=== PATIENT | female | born 1995 | race Native Hawaiian/Other Pacific Islander ===

== ENCOUNTER 2018-11-09 08:03 | Emergency (ER) | payer SELFPAY ==
[2018-11-09 08:10] VITALS: BP 140/80; PULSE 79; RESP 80; TEMP 37; O2SAT 100
--- NOTE | 2018-11-09 08:26 | DI.RAD_ITS ---
SYMPTOM/DIAGNOSIS: AXILLARY LYMPH NODE SWELLING, H/O UNKNOWN BONY ABNORMALITY PA AND LATERAL CHEST: The heart is normal in size. The lungs are clear. The mediastinal structures and pleura appear intact. CONCLUSION: Normal chest. LEFT HUMERUS: The patient reportedly has a history of a previous humeral lesion. There is a sclerotic endosteal lesion of the proximal humeral diaphysis measuring roughly 26 by 15 mm. in diameter. No other significant bony abnormality is seen. Previous images requested for comparison.
[2018-11-09 08:54] LABS: Abs Immature Grans 0.02 k/cumm (0.0-0.09); Absolute Basophil Count 0.05 k/cumm (0.0-0.2); Absolute Eosinophil Count 0.12 k/cumm (0.0-0.7); Absolute Lymphocyte Count 1.71 k/cumm (1.2-3.4); Absolute Monocyte Count 0.42 k/cumm (0.11-0.7); Absolute Neutrophil Count 3.85 k/cumm (1.2-6.7); Basophils % 0.8; Eosinophils % 1.9; HGB 15.3 g/dL (12.0-15.5); Immature Grans % 0.3; Lymphocytes % 27.7; Mean Corp. HGB Concentration 35.6 g/dL (32.0-36.0); Mean Corpuscular Hemoglobin 33.6 pg (27.0-33.0); Mean Corpuscular Volume 94.5 fL (80-95); Mean Platelet Volume 8.9 fL (8.0-11.0); Monocytes % 6.8; Neutrophils % 62.5; Platelet Count 395 x1000/uL (130-400); RBC 4.55 m/cumm (4.00-5.20); RBC Distribution Width 12.3 % (11.7-14.6); White Blood Cell Count 6.17 k/cumm (4.4-10.8)
--- NOTE | 2018-11-09 09:24 | W.ED.GENAD ---
Discharge Plan Disposition Patient Disposition: HOME Condition: Stable Discharge Details Chief Complaint: Cellulitis Clinical Impression: Lesion of left humerus Primary Care Provider: Ankur Dexter ED Provider: Odilon Hough Home Meds and New Rx's Prescriptions: No Action No Known Home Meds RF: 0 Discharge Instructions Instructions: Arm Pain (ED) Additional Instructions: Feel free to return to the emergency department for any new or significant worsening of symptoms or further concerns you may have. Otherwise you should follow-up with your primary care provider for reassessment and any further testing. Referrals: Ankur Dexter [Primary Care Provider] - 1 week (Follow-up with your primary care provider in the next 1 to 2 weeks for reassessment) Discharge Data Discharge Date/Time-TO BE ENTERED AT DEPARTURE: 11/09/18 09:54 Medical Decision Making Patient presenting to the emergency department for chief complaint of left axilla pain. Patient states this started yesterday evening and has been sharp. Patient states history of abnormal bone lesion about 10 years ago but she is unsure what arm this is occurred at. Patient denies any fever chills, cough, difficulty breathing. Patient also denies any injury or trauma to the left arm. Patient does have very tender left axilla with a small tender lymph node that is approximately 2 to 3 mm in size and is movable, not fixed. There is no erythema to this area no palpable area of fluctuance or induration. Exam is otherwise unremarkable with negative breast exam and no other abnormalities noted to left upper extreme. Given the patient states history of bone lesion without full follow-up and has lymph node tenderness I do feel that chest x-ray and humerus imaging is warranted along with CBC with differential. Review of CBC is nondiagnostic, chest x-ray is reviewed with radiologist interpreted as negative, imaging of left humerus shows a sclerotic lesion to the midshaft humerus otherwise is unremarkable. Speaking with radiologist he states that more than likely this is benign but may need further work-up and definitive biopsy if needed. All these results were reviewed with patient and she was informed that she should follow-up with her primary care provider given no emergent findings at this time. I do feel that this lymph node tenderness should be continued to be observed in biopsy versus repeat x-ray imaging may be warranted to continue to monitor this area. Speaking further with patient she does state that this was initially seen 10 years ago but does not know the size that it was at that time. Patient placed upon follow-up list for appointment with primary care provider next 1 to 2 weeks. Patient does shave her arms and use deodorant so she was informed to not do this over the next couple days to rule out any superficial sources that may be causing this discomfort. After discussion of diagnosis and plan of care patient has no further needs, questions, or concerns and states clear understanding to return to the emergency department for any worsening symptoms. HPI General Mode of arrival: ambulatory. Date/Time Provider Initiated Documentation: 11/09/18 08:05. Limitations to Documentation: no limitations. Information obtained by: patient and RN notes reviewed. History of Present Illness 23 year old F presents to the emergency department with the chief complaint of left axilla pain, described as moderate, with intensity rated at 6. Quality is described as sharp, and is localized to the left and upper extremity. Related Data Home Medications Medication Instructions Recorded Confirmed Unknown [No Known Home Meds] 11/09/18 11/09/18 Allergies Allergy/AdvReac Type Severity Reaction Status Date / Time amoxicillin Allergy Severe Anaphylaxsi Unverified 11/09/18 08:13 s Penicillins Allergy Severe Anaphylaxsi Unverified 11/09/18 08:13 s morphine Allergy Hives Unverified 11/09/18 08:13 General Stated Complaint: Cellulitis YOUSIF: 4 Review of Systems Constitutional Denies body ache(s), Denies chills and Denies fever(s) Cardiovascular Denies chest pain and Denies dyspnea Respiratory Denies dyspnea Gastrointestinal Denies abdominal pain, Denies nausea and Denies vomiting Integumentary/Breasts Denies rash Neurologic Denies sensory deficit Hematologic/Lymphatic Reports as per HPI (Painful lymph nodes) [facility] Social History Smoking/Tobacco Use Status: Current every day Tobacco Type: cigarettes Alcohol Intake: current Alcohol Intake frequency: a few times a month Drug use: Occasionally Substance use type: marijuana Do you feel safe at home: Yes Do you feel safe in your relationship?: Yes Exam Const General: cooperative, no acute distress and not ill appearing Orientation: alert, awake and oriented x3 Neck Neck: normal visual inspection, full ROM, no lymphadenopathy, trachea midline and supple Chest Breast inspection: normal inspection of the breasts and normal inspection of the axillae Breast palpation: normal palpation of the breasts and abnormal palpation of the axilla (Pain to the left axilla with one small palpable lymph node that is movable) Resp Effort & Inspection: normal respiratory effort, able to speak in complete sentences and no respiratory distress Auscultation: clear to auscultation bilaterally Cardio Rate: regular rate Rhythm: regular rhythm Heart Sounds: S1 normal, S2 normal, no gallops, no murmurs and no rubs Skin General skin exam: no rashes or lesions noted Hair: normal Neuro General: alert, awake, oriented x3 and moves all extremities Extrem Left upper extremity: shoulder/upper arm Course Vital Signs Temperature 37 C 11/09/18 08:10 Pulse 79 11/09/18 08:10 Respiratory Rate 80 H 11/09/18 08:10 Blood Pressure 140/80 11/09/18 08:10 Pulse Oximetry 100 11/09/18 08:10 Temperature 37 C 11/09/18 08:10 Temperature Source Temporal Artery Scan 11/09/18 08:10 Pulse 79 11/09/18 08:10 Respiratory Rate 80 H 11/09/18 08:10 Respiratory Effort Non-Labored 11/09/18 08:12 Blood Pressure 140/80 11/09/18 08:10 Blood Pressure Position Sitting 11/09/18 08:10 Pulse Oximetry 100 11/09/18 08:10 Oxygen Delivery Method Room Air 11/09/18 08:10 Oxygen Flow Rate 0 11/09/18 08:10 Pain Level 6 11/09/18 08:10 Lab/Test Results Lab/Test Results: Laboratory Tests Range/Units 11/09/18 08:47 WBC (4.4-10.8) k/cumm 6.17 RBC (4.00-5.20) m/cumm 4.55 Hgb (12.0-15.5) g/dL 15.3 Hct (36.0-46.0) % 43.0 MCV (80-95) fL 94.5 MCH (27.0-33.0) pg 33.6 H MCHC (32.0-36.0) g/dL 35.6 RDW (11.7-14.6) % 12.3 Plt Count (130-400) x1000/uL 395 MPV (8.0-11.0) fL 8.9 Immature Gran % 0.3 Neutrophils % 62.5 Lymphocytes % 27.7 Monocytes % 6.8 Eosinophils % 1.9 Basophils % 0.8 Absolute Neutrophils (1.2-6.7) k/cumm 3.85 Absolute Lymphocytes (1.2-3.4) k/cumm 1.71 Absolute Monocytes (0.11-0.7) k/cumm 0.42 Absolute Eosinophils (0.0-0.7) k/cumm 0.12 Absolute Basophils (0.0-0.2) k/cumm 0.05 POC- Test(urine) Negative
--- NOTE | 2018-11-10 08:15 | PDOC.ERCMPRO ---
Care Management Progress Note 11/10-Adan TANK WASHER requested assistance with a PCP (Guerita) in 1-2 weeks for lesion, humerus. Referral faxed to [facility] this am.
--- NOTE | 2018-11-10 08:16 | CMPROGNOTE_ITS ---
Care Management Progress Note 11/10-Adan TEST AND TURN UP TECHNICIAN requested assistance with a PCP (Guerita) in 1-2 weeks for lesion, humerus. Referral faxed to [facility] this am.
== END 2018-11-09 09:54 | disposition home or self-care (01) ==
PROVIDERS: Emergency Provider Nurse Practitioner Family; PCP Specialist/Technologist Athletic Trainer
DX: M89.9 Disorder of bone, unspecified (principal)
CPT/HCPCS: 36415; 81025; 99284; 71046; 73060; 85025

== ENCOUNTER 2019-08-09 13:36 | Outpatient (REF) | payer SELFPAY ==
[2019-08-09 21:09] LABS: Bacteria Many HPF (Negative); Casts Negative LPF (Negative); Crystals Negative HPF (Negative); Epithelial Cells Negative HPF (Negative); Mucus Negative (Negative); Other Cells Negative (Negative); RBC Negative HPF (0-2); WBC 0-2 HPF (0-5)
[2019-08-09 21:10] LABS: C & S Indicated? Yes
== END 2019-08-09 13:56 ==
LOC: NCHCN 13:36
PROVIDERS: Visit Provider Family Medicine
DX: R10.2 Pelvic and perineal pain (principal)
CPT/HCPCS: 87077; 81015; 87086; 87186; 87480; 87510; 87660

== ENCOUNTER 2019-08-24 14:51 | Outpatient (REF) | payer SELFPAY ==
[2019-08-24 19:18] LABS: Bacteria Negative HPF (Negative); C & S Indicated? No; Crystals Negative HPF (Negative); Epithelial Cells Few HPF (Negative); Mucus Negative (Negative); RBC Negative HPF (0-2); WBC Negative HPF (0-5)
== END 2019-08-24 15:11 ==
LOC: NCHCN 14:51
PROVIDERS: PCP Specialist/Technologist Athletic Trainer; Visit Provider Specialist/Technologist Athletic Trainer
DX: R10.9 Unspecified abdominal pain (principal)
CPT/HCPCS: 81015

== ENCOUNTER 2019-08-29 01:21 | Outpatient (CLI) | payer SELFPAY ==
--- NOTE | 2019-08-29 | DI.US_ITS ---
EXAM: US ABD PELV TRANSVAG NON-OB CLINICAL HISTORY: LT FLANK, ABD AND PELVIC PAIN TECHNIQUE: Ultrasound performed using standard protocol. COMPARISON: No exams were available for comparison FINDINGS: Pelvic ultrasound: Transabdominal and transvaginal exams were performed. The uterus measures 6.2 x 3 .0 x 4.2 cm. The endometrial stripe measures 5 millimeters in thickness. There is a small amount of free fluid in the cul-de-sac. The ovaries have a normal appearance. Abdomen ultrasound: The liver is normal in size. There is a question of slightly increased liver ech ogenicity which could indicate mild fatty infiltration. No focal liver lesions or biliary dilatation is seen. The gallbladder is unremarkable, without evidence of stones or wall thickening. The splee n, kidneys and aorta are unremarkable. The pancreas was not well seen. IMPRESSION: Abdomen and pelvic ultrasound within normal limits. DATA REPOSITORY:
== END 2019-08-29 01:41 ==
PROVIDERS: PCP Nurse Practitioner Family; Visit Provider Nurse Practitioner Family
DX: R10.2 Pelvic and perineal pain (principal); R10.32 Left lower quadrant pain; K76.89 Other specified diseases of liver
CPT/HCPCS: 76700; 76830; 76856

== ENCOUNTER 2020-02-19 06:27 | Emergency (ER) | payer MEDICAID, SELFPAY ==
[2020-02-19] VITALS (7 sets, daily range): BP systolic 103–137; BP diastolic 56–86; PULSE 50–74; RESP 11–20; TEMP 36.7–36.9; O2SAT 97–100
--- NOTE | 2020-02-19 06:35 | ED.GENADUL_ITS ---
Discharge Plan Disposition Patient Disposition: HOME Condition: Stable Discharge Details Chief Complaint: Nausea/Vomit/Diar Clinical Impression: Gastroenteritis, Vomiting, Abdominal pain Primary Care Provider: Jo Baum ED Provider: Monty Mendoza Home Meds and New Rx's Prescriptions: New prochlorperazine maleate [Compazine] 10 mg tablet 10 mg PO TID PRN (Reason: nausea and vomiting) Qty: 30 RF: 0 dicyclomine 20 mg tablet 20 mg PO TID Qty: 30 RF: 0 Discharge Instructions Instructions: Abdominal Pain (ED) Additional Instructions: drink fluids to stay hydrated follow up as scheduled with gastroenterology tomorrow if you feel more ill, have persistent vomit or severe worsening pain despite tylenol and ibuprofen return to the emergency department Stand Alone Forms: Work Release Medical Decision Making <Barrett Alan DO - Last Filed: 02/19/20 07:27> 24-year-old came female with a questionable history of irritable bowel syndrome in the distant past, presents today for evaluation of vomiting. Patient states that over the last few months she has had intermittent vomiting on and off, most recent episode has lasted for the last 4 days with 3-4 episodes of vomiting per day. She states that she has been unable to keep anything d own. She denies any risk of . She denies any previous surgeries on her abdomen. She has had some associated diarrhea, she denies any bloody diarrhea, recent antibiotics or foreign travel or sick contacts. She denies any hematemesis or coffee-ground emesis. She denies any other sick contacts. She does have gastroenterology appointment tomorrow in [place]. She denies any other complaints at this time. No other modifying factors. Physical exam demonstrates mild tenderness throughout . No guarding or rebound. Bowel sounds present. No pain at McBurney's point, some generalized nausea and discomfort with some mild periumbilical tenderness. Patient does smoke marijuana occasionally. Signs and symptoms are concerning for potential viral gastroenteritis versus mild irritable bowel syndrome. =We will get basic laboratory work-up, check for pancreatitis, rehydrate, treat the patient's nausea and spasm and reassess. 7:10 AM Repeat assessment after nausea and Bentyl medications demonstrates actual continued slight worsening of pain, then reassessment patient continues to have pain in the periumbilical region. Discussed risk and benefits of imaging, this time will progress with CT scan of the abdomen pelvis to rule out acute process. We will continue with rehydration medical management as well. Laboratory work-up is otherwise benign. Case will be signed out to my colleague Dr. Mendoza for final exam reassessment after imaging has returned. <Monty Mendoza MD - Last Filed: 02/19/20 08:51> labs show no significant findings and she is hd stable. She has a soft abdomen with no peritoneal findings on exam mild luq tenderness, no distention. I feel she is stable for d/c and has f/u with gi tomorrow, will prescribe compazine and bentyl and return precautions given Imaging Data Radiologic Study: Attestation: I personally reviewed and interpreted this imaging study as follows: Imaging: CT Scan Radiologist's impression: IMPRESSION: 1. Small quantity of free fluid in the cul-de-sac. 2. Wall thickening in the nondistended stomach. 3. Additional findings as described above. Lab Data Lab results reviewed: Yes I reviewed the patient's lab results. ECG Data Attestation: I personally reviewed and interpreted this ECG (s) as follows: Prior ECG tracings: not available for review Interpretation: sinus bradycardia, rate of 47, pr 118, no acute st t wave ischemic findings HPI <Barrett Alan DO - Last Filed: 02/19/20 07:27> General Date/Time Provider Initiated Documentation: 02/19/20 06:27 . HPI Narrative: 24-year-old came female with a questionable history of irritable bowel syndrome in the distant past, presents today for evaluation of vomiting. Patient states that over the last few months she has had intermittent vomiting on and off, most recent episode has lasted for the last 4 days with 3-4 episodes of vomiting per day. She states that she has been unable to keep anything down. She denies any risk of . She denies any previous surgeries on her abdomen. She has had some associated diarrhea, she denies any bloody diarrhea, recent antibiotics or foreign travel or sick contacts. She denies any hematemesis or coffee-ground emesis. She denies any other sick contacts. She does have gastroenterology appointment tomorrow in [place]. She denies any other complaints at this time. No other modifying factors. Related Data Home Medications Medication Instructions Recorded Confirmed dicyclomine 20 mg PO TID #30 tab 02/19/20 prochlorperazine maleate 10 mg PO TID PRN #30 tab 02/19/20 [Compazine] Previous Rx's Medication Instructions Recorded dicyclomine 20 mg PO TID #30 tab 02/19/20 prochlorperazine maleate 10 mg PO TID PRN #30 tab 02/19/20 [Compazine] Allergies Allergy/AdvReac Type Severity Reaction Status Date / Time amoxicillin Allergy Severe Anaphylaxsi Unverified 02/19/20 06:35 s Penicillins Allergy Severe Anaphylaxsi Unverified 02/19/20 06:35 s morphine Allergy Hives Unverified 02/19/20 06:35 General Stated Complaint: Nausea/Vomit/Diar YOUSIF: 3 Review of Systems <Barrett Alan DO - Last Filed: 02/19/20 07:27> All systems reviewed & are unremarkable except as noted in HPI and below PFSH <Barrett Alan DO - Last Filed: 02/19/20 07:27> Social History Smoking/Tobacco Use Status: Current every day Tobacco Type: cigarettes Alcohol Intake: current Alcohol Intake frequency: a few times a month Drug use: Occasionally Substance use type: marijuana Do you feel safe at home: Yes Do you feel safe in your relationship?: Yes Exam <Barrett Alan DO - Last Filed: 02/19/20 07:27> Narrative Exam Narrative: 1.Const: Well-nourished, Well-developed, appearing stated age 2.Eyes: PERRL, no conjunctival injection, and symmetrical lids. 3.ENT: Atraumatic external nose and ears. Moist MM. Neck: Symmetric, trachea midline, No thyromegaly. 4.CVS: +S1/S2, No murmurs or gallops. Peripheral pulses 2+ and equal in all extremities. Brisk capillary refill in all extremities. 5.RESP: Unlabored respiratory effort. Clear to auscultation bilaterally. No wheezes rales or rhonchi 6.GI: Soft, nondistended, no hepatosplenomegaly, no guarding or rebound. No tenderness at McBurney's point, negative Kat sign. Bowel sounds notably present, mild tenderness throughout. 7.MSK: Normocephalic/Atraumatic, Extremities w/o deformity or ttp No cyanosis or clubbing, Normal movement of all extremities 8.Skin: Warm, Dry. No rashes or lesions. 9.Neuro: staff psychologist II-XII grossly intact. Sensation grossly intact, no focal neurologic deficits. 10.Psych: (AAO) x3. Appropriate mood and affect Course <Barrett Alan DO - Last Filed: 02/19/20 07:27> Vital Signs Vital signs: Vital Signs Temperature 36.7 C 02/19/20 06:31 Pulse 74 02/19/20 06:31 Respiratory Rate 20 02/19/20 06:31 Blood Pressure 137/86 02/19/20 06:31 Pulse Oximetry 99 02/19/20 06:31 Temperature 36.7 C 02/19/20 06:31 Temperature Source Temporal Artery Scan 02/19/20 06:31 Pulse 74 02/19/20 06:31 Respiratory Rate 20 02/19/20 06:31 Blood Pressure 137/86 02/19/20 06:31 Blood Pressure Position Sitting 02/19/20 06:31 Pulse Oximetry 99 02/19/20 06:31 Oxygen Delivery Method Room Air 02/19/20 06:31 Oxygen Flow Rate 0 02/19/20 06:31 Pain Level 8 02/19/20 06:31 Sign Out <Barrett Alan DO - Last Filed: 02/19/20 07:27> Sign Out Data: Sign Out Comment: Pending urinalysis, and CT imaging results. Suspect gastroenteritis versus mild colitis. Last updated by Barrett Alan DO at 02/19/20 07:27
[2020-02-19] MEDS: Normal Saline 1,000 ML 1000 ML IV (06:44)
[2020-02-19] MEDS: Ondansetron 4 MG/2 ML VIAL IVP (06:45)
[2020-02-19 06:49] LABS: Abs Immature Grans 0.02 10^3/uL (0.0-0.06); Absolute Basophil Count 0.04 10^3/uL (0.0-0.2); Absolute Eosinophil Count 0.08 10^3/uL (0.0-0.7); Absolute Lymphocyte Count 2.09 10^3/uL (1.2-3.4); Absolute Monocyte Count 0.53 10^3/uL (0.1-0.8); Absolute Neutrophil Count 4.97 10^3/uL (1.2-6.7); Basophils % 0.5; HCT 43.5 % (36.0-46.0); HGB 15.4 g/dL (11.2-15.7); Immature Grans % 0.3; MCHC 35.4 % (32.0-36.0); MCV 98.9 fL (80-95); MPV 9.3 fL (8.0-11.0); Monocytes % 6.9; Neutrophils % 64.3; Nucleated RBC 0 %; Platelet Count 437 10^3/uL (130-400); RDW 11.9 % (11.7-14.6); RDW-SD 43.4 fL; WBC 7.73 10^3/uL (4.4-10.8)
[2020-02-19 07:11] LABS: ALT 20 U/L (14-59); AST 23 U/L (15-37); Albumin 3.9 g/dL (3.4-5.0); Alkaline Phosphatase 68 U/L (46-116); Anion Gap 10.6 mmol/L (3-11); BUN 9 mg/dL (7-18); Bilirubin, Total 0.8 mg/dL (0.2-1.0); CO2 25.4 mmol/L (21.0-32.0); CREATININE 0.86 mg/dL (0.55-1.02); Calcium 9.2 mg/dL (8.5-10.1); Chloride 104 mmol/L (98-107); Glucose 114 mg/dL (74-106); Lipase 329 U/L (73-393); Potassium 3.5 mmol/L (3.5-5.1); Sodium 140 mmol/L (136-145); Total Protein 7.6 g/dL (6.4-8.2)
--- NOTE | 2020-02-19 07:12 | DI.CT_ITS ---
EXAM: CT ABDOMEN PELVIS W CLINICAL HISTORY: vomiting, hui-umbilical abd pain r/o appe/GB path. TECHNIQUE: Imaging Protocol: Axial computed tomography images with coronal and sagittal reformatted images were created and reviewed CONTRAST MATERIAL: Intravenous: Omnipaque 350 Contrast volume:96 Oral: no COMPARISON: CT CHEST FOR PE, ABD PELVIS W from 12/12/2017 FINDINGS: ABDOMEN: Lung Bases: Normal where visualized. Liver: Normal density. No measurable mass. Gallbladder and biliary tract: No radiodense calculus or dilation. Pancreas: Normal density, no abnormal calcifications or inflammatory process. Spleen: Normal. Kidneys: Normal size, contour and axis. No radiodense stones or obstructive uropathy. No masses seen. Adrenal glands: No masses seen. Abdominal Aorta: Abdominal portion non-dilated. PELVIS: Bladder: Symmetric distention, no gross wall thickening. Bowel: The bowel is suboptimally evaluated due to lack of oral contrast and paucity of intra-abdomina l fat. There is no evidence of appendicitis. There is a normal quantity of stool. No obstruction o r bowel wall thickening. Peritoneal cavity: No ascites, collection or mesenteric inflammatory response. Bones: Within normal limits. Reproductive organs: Within normal limits. Lymph nodes: Unremarkable. Impression: Unremarkable CT scan of the abdomen and pelvis. RADIATION DOSE DELIVERED: 705.06mGy.cm Total DLP DATA REPOSITORY: All CT scans at this facility are submitted to the National Radiology Data Registry (NRDR) Dose Index Registry (DIR) with the [employer] (ACR). RADIATION OPTIMIZATION: All CT scans at this facility use at least one of these dose optimization te chniques: automated exposure control; mA and/or kV adjustment per patient size (includes targeted exa ms where dose is matched to clinical indication); or iterative reconstruction.
[2020-02-19 07:29] LABS: Bilirubin Negative (Negative); Blood Moderate (Negative); Clarity Clear (Clear); Glucose Negative (Negative); Ketones Negative (Negative); Leukocyte Esterase Negative (Negative); Nitrite Negative (Negative); Urobilinogen 0.2 EU/dL (Up TO 0.2)
[2020-02-19] MEDS: HYDROmorphone 2 MG/ML VIAL 1 MG IVP (07:31)
[2020-02-19 07:42] LABS: Bacteria Negative HPF (Negative); C & S Indicated? No; Casts Negative LPF (Negative); Crystals Negative HPF (Negative); Epithelial Cells Few HPF (Negative); Mucus Trace (Negative); WBC 0-2 HPF (0-5)
[2020-02-19] MEDS: Omnipaque 350 MG/ML 100 ML BTL IJ (08:06)
[2020-02-19] MEDS: Normal Saline Flush 10 ML SYR IVP (08:09)
[2020-02-19] MEDS: Normal Saline - Diluent 50 ML VIAL IV (08:09)
--- NOTE | 2020-02-19 08:15 | RT.EKG_ITS ---
APPROVED REPORT Exam: Resting ECG Patient Location: E HR:47 bpm ECG Measurements Heart Rate 47 AXIS AL 118 P 89 QRSd 88 QRS 47 QT 517 T 37 QTc 458 Conclusion Sinus bradycardia...rate< 60
[2020-02-19] MEDS: Dicyclomine 20 MG TAB PO (08:20)
--- NOTE | 2020-02-19 08:38 | DI.VRAD_ITS ---
PROCEDURE INFORMATION: Exam: CT Abdomen And Pelvis With Contrast Exam date and time: 02/19/2020 8:08 AM Age: 24 years old Clinical indication: Pain; Vomiting; Other: Jacqueline-umbilical; Patient HX: R/O gb pathology/appendicitis TECHNIQUE: Imaging protocol: Computed tomography of the abdomen and pelvis with intravenous contrast. Radiation optimization: All CT scans at this facility use at least one of these dose optimization techniques: automated exposure control; mA and/or kV adjustment per patient size (includes targeted exams where dose is matched to clinical indication); or iterative reconstruction. Contrast material: OMNIPAQUE 350; Contrast volume: 96 ml; Contrast route: INTRAVENOUS (IV); COMPARISON: CT CHEST FOR PE, ABD PELVIS W 12/12/2017 9:02 PM FINDINGS: Pleural space: No acute airspace or pleural disease. Liver: Focal fatty infiltration of the liver. Gallbladder and bile ducts: No cholelithiasis or biliary ductal dilatation. Pancreas: No pancreatic mass or ductal dilatation. Spleen: Inhomogeneous attenuation in the normal size spleen. Adrenals: Unremarkable adrenals. Kidneys and ureters: Normal renal morphology. No hydronephrosis. Stomach and bowel: Wall thickening in the nondistended stomach. Mild small bowel dilatation without a focal transition zone. Diverticula, without pericolonic inflammation. Appendix: No acute appendicitis. Intraperitoneal space: Small quantity of free fluid in the cul-de-sac. Vasculature: Normal caliber of the abdominal aorta. Lymph nodes: Subcentimeter lymph nodes. Bladder: Mild bladder wall thickening. Reproductive: Follicular change in the ovaries. Bones/joints: Sacroiliac joint sclerosis. Schmorl's nodes. IMPRESSION: 1. Small quantity of free fluid in the cul-de-sac. 2. Wall thickening in the nondistended stomach. 3. Additional findings as described above. Dictated and Authenticated by: Matthew Coppola MD. Ordering:ES Hyde MD
== END 2020-02-19 09:24 | disposition home or self-care (01) ==
PROVIDERS: Student in an Organized Health Care Education/Training Program; Emergency Provider Emergency Medicine; PCP Nurse Practitioner Family
DX: K52.89 Other specified noninfective gastroenteritis and colitis (principal); R11.10 Vomiting, unspecified; R10.33 Periumbilical pain
CPT/HCPCS: 36415; 80053; 81025; 83690; 93005; 96361; 96374; 96375; 99285; 74177; 81003; 81015; 85025; 93010; 99284; J2405; J3490

== ENCOUNTER 2020-04-03 18:02 | Outpatient (REF) | payer MEDICAID, SELFPAY ==
--- NOTE | 2020-04-03 16:30 | PAPFT_PTH ---
PATIENT: Jasmyne Montoya [id number] AGE/SX: 25/F ROOM: RE04/03/[address]: Jo Baum : 1995 BED: DIS: 04/03/2020 SPEC #: [id number] RECD: 04/04/20 12:50 STATUS: MAYKEL REAkhil #: [id number] RONNY: 04/03/20 16:[address]: Jo Baum DEPT: [facility] Cytology RECD BY: Josefina Doran Tissues: 1 - CX/ENDOCX FOR PAP SMEARS Procedures: PAP THIN PREP/[facility] Screening Comments: [id number]
== END 2020-04-03 18:22 ==
LOC: NCHCN 18:02
PROVIDERS: PCP Nurse Practitioner Family; Visit Provider Nurse Practitioner Family
DX: Z12.4 Encounter for screening for malignant neoplasm of cervix (principal)
CPT/HCPCS: 88142

== ENCOUNTER 2020-04-18 07:42 | Emergency (ER) | payer MEDICAID, SELFPAY ==
[2020-04-18 07:51] VITALS: BP 126/93; PULSE 74; RESP 14; TEMP 36.6; O2SAT 100
--- NOTE | 2020-04-18 08:15 | DI.CT_ITS ---
EXAM: CT HEAD WO CLINICAL HISTORY: GUADARRAMA x 2 days, no Hx. TECHNIQUE: Imaging Protocol: Axial computed tomography images with coronal and sagittal reformatted images were created and reviewed COMPARISON: No exams were available for comparison FINDINGS: Ventricles and Extra axial spaces: Normal in size and morphology for the patient's age. Hemorrhage: None. Cerebral parenchyma: Normal. Midline shift: None. Brainstem/Cerebellum: Normal. Calvarium: Normal. Visualized Paranasal sinuses/Mastoids: Clear. Soft Tissues: Unremarkable. IMPRESSION: No acute intracranial process. Results of this exam have been verbally communicated with provider. RADIATION DOSE DELIVERED: 688.22mGy.cm Total DLP DATA REPOSITORY: All CT scans at this facility are submitted to the National Radiology Data Registry (NRDR) Dose Index Registry (DIR) with the [employer] (ACR). RADIATION OPTIMIZATION: All CT scans at this facility use at least one of these dose optimization te chniques: automated exposure control; mA and/or kV adjustment per patient size (includes targeted exa ms where dose is matched to clinical indication); or iterative reconstruction.
[2020-04-18] MEDS: Metoclopramide 10 MG/2 ML VIAL IVP (08:39)
[2020-04-18] MEDS: diphenhydrAMINE 50 MG/ML VIAL IVP (08:40)
[2020-04-18] MEDS: Ketorolac 30 MG/ML VIAL IVP (08:40)
[2020-04-18 08:41] LABS: Bilirubin Negative (Negative); Blood Negative (Negative); Clarity Clear (Clear); Glucose Negative (Negative); Ketones Negative (Negative); Leukocyte Esterase Trace (Negative); Nitrite Negative (Negative); pH 8.5 (5-8)
[2020-04-18] MEDS: Normal Saline 1,000 ML 1000 ML IV (08:41)
[2020-04-18] MEDS: Normal Saline 50 ML (08:41)
[2020-04-18 08:51] LABS: Bacteria Moderate HPF (Negative); C & S Indicated? Yes; Casts Negative LPF (Negative); Crystals Negative HPF (Negative); Epithelial Cells Few HPF (Negative); Mucus Heavy (Negative); RBC 0-2 HPF (0-2); WBC 20-50 HPF (0-5)
[2020-04-18 08:56] LABS: Abs Immature Grans 0.04 10^3/uL (0.0-0.06); Absolute Basophil Count 0.05 10^3/uL (0.0-0.2); Absolute Eosinophil Count 0.03 10^3/uL (0.0-0.7); Absolute Lymphocyte Count 1.82 10^3/uL (1.2-3.4); Absolute Monocyte Count 0.61 10^3/uL (0.1-0.8); Absolute Neutrophil Count 6.39 10^3/uL (1.2-6.7); Basophils % 0.6; Eosinophils % 0.3; HCT 44.2 % (36.0-46.0); HGB 15.6 g/dL (11.2-15.7); Immature Grans % 0.4; Lymphocytes % 20.4; MCH 34.9 pg (27.0-33.0); MCHC 35.3 % (32.0-36.0); MCV 98.9 fL (80-95); MPV 9.8 fL (8.0-11.0); Monocytes % 6.8; Neutrophils % 71.5; Nucleated RBC 0 %; Platelet Count 380 10^3/uL (130-400); RBC 4.47 10^6/uL (3.93-5.22); RDW 12.2 % (11.7-14.6); RDW-SD 44.6 fL; WBC 8.94 10^3/uL (4.4-10.8)
[2020-04-18 09:15] LABS: ALT 15 U/L (14-59); AST 23 U/L (15-37); Albumin 3.9 g/dL (3.4-5.0); Alkaline Phosphatase 78 U/L (46-116); Anion Gap 8.2 mmol/L (3-11); BUN 9 mg/dL (7-18); Bilirubin, Total 1.2 mg/dL (0.2-1.0); CO2 26.8 mmol/L (21.0-32.0); CREATININE 0.74 mg/dL (0.55-1.02); Calcium 8.8 mg/dL (8.5-10.1); Chloride 102 mmol/L (98-107); Glucose 99 mg/dL (74-106); Potassium 3.6 mmol/L (3.5-5.1); Sodium 137 mmol/L (136-145); Total Protein 7.8 g/dL (6.4-8.2)
[2020-04-18 09:57] VITALS: BP 102/74; PULSE 51; RESP 16; O2SAT 99
[2020-04-18] MEDS: ACETAMINOPHEN 1,000 MG/100 ML BTL 400 MG IVPB (10:13)
--- NOTE | 2020-04-18 10:29 | W.ED.GENAD ---
Discharge Plan Disposition Patient Disposition: HOME Condition: Stable Discharge Details Clinical Impression: Cephalalgia Primary Care Provider: Jo Baum ED Provider: Christopher Busch Home Meds and New Rx's Prescriptions: Continued prochlorperazine maleate [Compazine] 10 mg tablet 10 mg PO TID PRN (Reason: nausea and vomiting) Qty: 30 RF: 0 dicyclomine 20 mg tablet 20 mg PO TID Qty: 30 RF: 0 omeprazole 40 mg capsule,delayed release(DR/EC) RF: 0 Discharge Instructions Instructions: General Headache (ED) Additional Instructions: At this time your blood work and CT imaging are unremarkable for obvious emergent process. Urine culture is pending. We discussed the risks and benefits of lumbar puncture at this time, using shared decision making the option to defer the lumbar puncture today was elected. As we discussed, please watch for new or worsening symptoms and return to the ER for any concerns. Plenty of fluids to avoid dehydration. [id number]-[id number] Tylenol and/or Motrin as directed for discomfort. Continue taking your antiemetic as directed. I do recommend reaching out your primary care provider later today for prompt outpatient reevaluation. As we discussed if you continue to have headaches referral to neurology may also be indicated. Discharge Data Discharge Date/Time-TO BE ENTERED AT DEPARTURE: 04/18/20 12:10 Medical Decision Making 25-year-old female with no significant past medical history reports with a progressive and gradual global headache for the past 2 days. Denies recent illness, trauma, visual changes, neck pain, fever. She appears well, nontoxic, no acute distress, however the light is off in the room given her photosensitivity. Given she has never had a headache or migraine before, we discussed her options. She is agreeable to a head CT and routine laboratory values. We will give IV fluid, Reglan, Benadryl, Toradol. We did discuss diagnoses such as headache, migraine, aneurysm, meningitis, subarachnoid hemorrhage, etc. She certainly did not have a thunderclap headache. She denies any family history of migraines, aneurysm, CVA, etc. We discussed the setting of lumbar puncture and her current symptoms. Upon reevaluation patient reports that her pain went from an 8 down to a 6 and now has no nausea and only mild photosensitivity. White blood cell count of 8.94. Hemoglobin 15.6 hematocrit 44.2 platelet count 380. Electrolytes unremarkable. Creatinine 0.74 with a GFR greater than 60. Total bili 1.2 LFTs otherwise unremarkable. Urinalysis does show 20-50 white blood cells, few epithelials. Negative nitrate. Patient denies any urinary symptoms whatsoever, will not initiate antibiotic therapy and will await culture. Imaging of her head was unremarkable. Upon reevaluation she continues to appear well, nontoxic, reports her pain is now a 5 out of 10. We discussed her benign work-up thus far. She continues to have no nuchal rigidity. We once again discussed options. She would like to not proceed with a lumbar puncture understanding the limitations of CT imaging with a headache that has been present for the last 48 hours. Will give IV magnesium and Tylenol. Upon reevaluation she reports significant improvement. Pain is now a 3 out of 10. Denies any photosensitivity or nausea. Patient's is now in the room. We once again discussed lumbar puncture, patient declines, understands the risks and benefits. She is feeling better and would like to be discharged. She has antiemetics at home and will use [id number]-[id number] Tylenol and/or Motrin, plenty of fluids to avoid dehydration. We discussed the importance of watching for new or evolving symptoms and returning immediately to the ER. Otherwise she will reach out to her primary care provider later today or tomorrow for prompt outpatient reevaluation. She does understand that outpatient referral to neurology may be indicated if symptoms persist. Upon discharge she appears well, nontoxic, neurologically intact. Medical Records Medical records reviewed: Yes I reviewed the patient's medical records. Imaging Data Radiologic Study: Attestation: I personally reviewed and interpreted this imaging study as follows: Imaging: CT Scan Radiologist's impression: CT imaging of brain unremarkable per radiology Lab Data Lab results reviewed: Yes I reviewed the patient's lab results. Lab results narrative: 04/18/20 08:30 Urine - Reflex from Ua Urine Culture - Preliminary Laboratory Tests Range/Units 04/18/20 04/18/20 04/18/20 08:10 08:10 08:30 WBC (4.4-10.8) 10^3/uL 8.94 RBC (3.93-5.22) 10^6/uL 4.47 Hgb (11.2-15.7) g/dL 15.6 Hct (36.0-46.0) % 44.2 MCV (80-95) fL 98.9 H MCH (27.0-33.0) pg 34.9 H MCHC (32.0-36.0) % 35.3 RDW (11.7-14.6) % 12.2 Plt Count (130-400) 10^3/uL 380 MPV (8.0-11.0) fL 9.8 Immature Gran % 0.4 Neutrophils % 71.5 Lymphocytes % 20.4 Monocytes % 6.8 Eosinophils % 0.3 Basophils % 0.6 Nucleated RBC % % 0 Absolute Neutrophils (1.2-6.7) 10^3/uL 6.39 Absolute Lymphocytes (1.2-3.4) 10^3/uL 1.82 Absolute Monocytes (0.1-0.8) 10^3/uL 0.61 Absolute Eosinophils (0.0-0.7) 10^3/uL 0.03 Absolute Basophils (0.0-0.2) 10^3/uL 0.05 Sodium (136-145) mmol/L 137 Potassium (3.5-5.1) mmol/L 3.6 Chloride (98-107) mmol/L 102 Carbon Dioxide (21.0-32.0) mmol/L 26.8 Anion Gap (3-11) mmol/L 8.2 BUN (7-18) mg/dL 9 Creatinine (0.55-1.02) mg/dL 0.74 Estimated GFR/1.73 m2 (mL/min/1.73m2) >= 60.00 Glucose (74-106) mg/dL 99 Calcium (8.5-10.1) mg/dL 8.8 Total Bilirubin (0.2-1.0) mg/dL 1.2 H AST (15-37) U/L 23 ALT (14-59) U/L 15 Alkaline Phosphatase (46-116) U/L 78 Total Protein (6.4-8.2) g/dL 7.8 Albumin (3.4-5.0) g/dL 3.9 Urine Color (Yellow) Yellow Urine Clarity (Clear) Clear Urine pH (5-8) 8.5 H Ur Specific [place] (1.005-1.025) 1.020 Urine Protein (Negative) mg/dL 30 H Urine Ketones (Negative) mg/dL Negative Urine Blood (Negative) Negative Urine Nitrite (Negative) Negative Urine Bilirubin (Negative) Negative Urine Urobilinogen (Up TO 0.2) EU/dL 1.0 H Ur Leukocyte Esterase (Negative) Trace H Urine RBC (0-2) HPF 0-2 Urine WBC (0-5) HPF 20-50 H Ur Epithelial Cells (Negative) HPF Few Urine Crystals (Negative) HPF Negative Urine Bacteria (Negative) HPF Moderate Urine Casts (Negative) LPF Negative Urine Mucus (Negative) Heavy Ur Culture Indicated? Yes Urine Glucose (Negative) mg/dL Negative HPI General Mode of arrival: ambulatory. Date/Time Provider Initiated Documentation: 04/18/20 08:02. Limitations to Documentation: no limitations. Information obtained by: patient. HPI Narrative: This is a 25-year-old female who reports no significant past medical history although has been having stomach issues for quite some time. She presents to the ER today reporting a global headache that began 2 days ago. When she went to bed 3 days ago she was asymptomatic. She awoke with a mild headache, it has since become progressively worse, now an 8 out of 10. She reports nausea, vomiting, photosensitivity. She denies previous history of headaches or migraines. Denies recent illness or trauma. Denies striking her head, visual changes, neck pain, fever, chest pain, abdominal pain, numbness, tingling, weakness, incontinence. She has taken her prescribed antiemetic with mild relief but has not tried other nbgm-ffr-momdxjz medications. Related Data Home Medications Medication Instructions Recorded Confirmed dicyclomine 20 mg PO TID #30 tab 02/19/20 04/18/20 prochlorperazine maleate 10 mg PO TID PRN #30 tab 02/19/20 [Compazine] omeprazole 04/18/20 04/18/20 Previous Rx's Medication Instructions Recorded dicyclomine 20 mg PO TID #30 tab 02/19/20 prochlorperazine maleate 10 mg PO TID PRN #30 tab 02/19/20 [Compazine] Allergies Allergy/AdvReac Type Severity Reaction Status Date / Time amoxicillin Allergy Severe Anaphylaxsi Unverified 04/18/20 07:53 s Penicillins Allergy Severe Anaphylaxsi Unverified 04/18/20 07:53 s morphine Allergy Hives Unverified 04/18/20 07:53 General Stated Complaint: Headache YOUSIF: 3 Review of Systems Constitutional Constitutional: Denies fatigue, Denies fever(s), Reports headache(s) and Denies weakness Eyes Eyes: Denies change in vision ENT Ears, Nose, Mouth, and Throat: Reports headache(s) and Denies sinus pressure Cardiovascular Cardiovascular: Denies chest pain and Denies dyspnea Respiratory Respiratory: Denies cough and Denies dyspnea Gastrointestinal Gastrointestinal: Denies abdominal pain, Reports nausea and Reports vomiting Musculoskeletal Musculoskeletal: Denies back pain, Denies arthralgias, Denies numbness and Denies tingling Integumentary/Breasts Skin/Breast: Denies rash Neurologic Neurologic: Reports headache(s), Denies numbness, Denies tingling and Denies weakness Endocrine Endocrine: Denies fatigue PFSH Social History Smoking/Tobacco Use Status: Current every day Tobacco Type: cigarettes Alcohol Intake: current Alcohol Intake frequency: a few times a month Drug use: Occasionally Substance use type: marijuana Do you feel safe at home: Yes Do you feel safe in your relationship?: Yes Exam Const General: cooperative, healthy appearing, comfortable and no acute distress Orientation: alert, awake and oriented x3 HENMT Head: normal to inspection, normocephalic and atraumatic Ears: external ears normal, TM's normal bilaterally and EAC's normal Mouth: moist mucous membranes Eyes General: appearance normal, both eyes and all related structures Alignment and Position: alignment normal Periorbital: periorbital findings normal Eyelids: eyelids normal Conjunctivae: conjunctivae normal Sclera: sclerae normal Cornea: corneas normal Pupils: PERRL EOM: EOM intact bilaterally Direct ophthalmoscopy: normal light reflex Neck Neck: normal visual inspection, full ROM, no lymphadenopathy, no meningeal signs, trachea midline, supple and nontender Resp Effort & Inspection: normal respiratory effort and able to speak in complete sentences Auscultation: clear to auscultation bilaterally Cardio Rate: regular rate Rhythm: regular rhythm GI Palpation: soft and nontender Back/Spine/Pelvis Back: No back tenderness Skin General skin exam: no rashes or lesions noted Neuro General: patient alert, patient awake, patient oriented x3, moves all extremities and no focal motor deficits Cranial Nerves: CN's II-XI intact bilaterally Cognition: normal cognition Speech: speech normal Gait: normal gait Motor: muscle tone normal throughout, strength 5/5 throughout, no pronator drift, no movement abnormalities noted and no fasciculations Sensory Exam: no sensory deficits noted Coordination: omcysf-uv-ikwk test normal, bwcm-hk-wdjp test normal and Does not sway with eyes open Extrem General: normal to inspection, full ROM and capillary refill normal Psych Appearance: grossly normal Mental Status: mental status grossly normal Course Vital Signs Vital signs: Vital Signs Temperature 36.6 C 04/18/20 07:51 Pulse 74 04/18/20 07:51 Respiratory Rate 14 04/18/20 07:51 Blood Pressure 126/93 H 04/18/20 07:51 Pulse Oximetry 100 04/18/20 07:51 Temperature 36.6 C 04/18/20 07:51 Temperature Source Skin 04/18/20 07:51 Pulse 51 L 04/18/20 09:57 Respiratory Rate 16 04/18/20 09:57 Respiratory Effort 04/18/20 07:54 Blood Pressure 102/74 04/18/20 09:57 Blood Pressure Position Sitting 04/18/20 07:51 Pulse Oximetry 99 04/18/20 09:57 Oxygen Delivery Method Room Air 04/18/20 09:57 Oxygen Flow Rate 0 04/18/20 09:57 Pain Level 8 04/18/20 07:54 Lab/Test Results Lab/Test Results: 04/18/20 08:30 Urine - Reflex from Ua Urine Culture - Pending Laboratory Tests Range/Units 04/18/20 04/18/20 04/18/20 08:10 08:10 08:30 WBC (4.4-10.8) 10^3/uL 8.94 RBC (3.93-5.22) 10^6/uL 4.47 Hgb (11.2-15.7) g/dL 15.6 Hct (36.0-46.0) % 44.2 MCV (80-95) fL 98.9 H MCH (27.0-33.0) pg 34.9 H MCHC (32.0-36.0) % 35.3 RDW (11.7-14.6) % 12.2 Plt Count (130-400) 10^3/uL 380 MPV (8.0-11.0) fL 9.8 Immature Gran % 0.4 Neutrophils % 71.5 Lymphocytes % 20.4 Monocytes % 6.8 Eosinophils % 0.3 Basophils % 0.6 Nucleated RBC % % 0 Absolute Neutrophils (1.2-6.7) 10^3/uL 6.39 Absolute Lymphocytes (1.2-3.4) 10^3/uL 1.82 Absolute Monocytes (0.1-0.8) 10^3/uL 0.61 Absolute Eosinophils (0.0-0.7) 10^3/uL 0.03 Absolute Basophils (0.0-0.2) 10^3/uL 0.05 Sodium (136-145) mmol/L 137 Potassium (3.5-5.1) mmol/L 3.6 Chloride (98-107) mmol/L 102 Carbon Dioxide (21.0-32.0) mmol/L 26.8 Anion Gap (3-11) mmol/L 8.2 BUN (7-18) mg/dL 9 Creatinine (0.55-1.02) mg/dL 0.74 Estimated GFR/1.73 m2 (mL/min/1.73m2) >= 60.00 Glucose (74-106) mg/dL 99 Calcium (8.5-10.1) mg/dL 8.8 Total Bilirubin (0.2-1.0) mg/dL 1.2 H AST (15-37) U/L 23 ALT (14-59) U/L 15 Alkaline Phosphatase (46-116) U/L 78 Total Protein (6.4-8.2) g/dL 7.8 Albumin (3.4-5.0) g/dL 3.9 Urine Color (Yellow) Yellow Urine Clarity (Clear) Clear Urine pH (5-8) 8.5 H Ur Specific [place] (1.005-1.025) 1.020 Urine Protein (Negative) mg/dL 30 H Urine Ketones (Negative) mg/dL Negative Urine Blood (Negative) Negative Urine Nitrite (Negative) Negative Urine Bilirubin (Negative) Negative Urine Urobilinogen (Up TO 0.2) EU/dL 1.0 H Ur Leukocyte Esterase (Negative) Trace H Urine RBC (0-2) HPF 0-2 Urine WBC (0-5) HPF 20-50 H Ur Epithelial Cells (Negative) HPF Few Urine Crystals (Negative) HPF Negative Urine Bacteria (Negative) HPF Moderate Urine Casts (Negative) LPF Negative Urine Mucus (Negative) Heavy Ur Culture Indicated? Yes Urine Glucose (Negative) mg/dL Negative POC- Test(urine) Negative
[2020-04-18] MEDS: MAGNESIUM SULFATE 1 GM/100 ML BAG IVPB (10:34)
[2020-04-18 11:42] VITALS: BP 103/68; PULSE 60; RESP 20; TEMP 36.5; O2SAT 99
== END 2020-04-18 12:10 | disposition home or self-care (01) ==
PROVIDERS: Emergency Provider Physician Assistant; PCP Nurse Practitioner Family
DX: R11.2 Nausea with vomiting, unspecified (principal); R51.9 Headache, unspecified
CPT/HCPCS: 36415; 80053; 81025; 87077; 96361; 96365; 96375; 99284; 70450; 81003; 81015; 85025; 87086; 87186; J0131; J1200; J1885; J2765; J3475

== ENCOUNTER 2020-05-02 03:43 | Outpatient (CLI) | payer MEDICAID, SELFPAY ==
--- NOTE | 2020-05-02 | DI.RAD_ITS ---
EXAM: XR SHOULDER RT COMPLETE 2+V CLINICAL HISTORY: RT SHOULDER PAIN,M25.511 TECHNIQUE: COMPARISON: No exams were available for comparison FINDINGS: Six views were obtained. There is question of slight narrowing of the cartilaginous joint space of t he glenohumeral joint. No bony abnormality seen. No soft tissue calcification seen. IMPRESSION: Question slight narrowing cartilaginous joint space of the glenohumeral joint. Otherwise unremarkabl e examination. RADIATION DOSE DELIVERED: Total DLP
== END 2020-05-02 04:03 ==
PROVIDERS: PCP Specialist/Technologist Athletic Trainer; Visit Provider Nurse Practitioner Family
DX: M25.511 Pain in right shoulder (principal)
CPT/HCPCS: 73030

== ENCOUNTER 2020-08-06 13:58 | Emergency (ER) | payer MEDICAID, SELFPAY ==
[2020-08-06 14:05] VITALS: BP 157/93; PULSE 104; RESP 20; TEMP 36.7; O2SAT 99
[2020-08-06 14:17] LABS: Bilirubin Negative (Negative); Blood Negative (Negative); Clarity Sl Cloudy (Clear); Glucose Negative (Negative); Ketones 15 mg/dL (Negative); Leukocyte Esterase Negative (Negative); Nitrite Negative (Negative); Urobilinogen 0.2 EU/dL (Up TO 0.2); pH 8.5 (5-8)
--- NOTE | 2020-08-06 14:18 | ED.GENADUL_ITS ---
Discharge Plan Disposition Patient Disposition: HOME Condition: Improving Discharge Details Clinical Impression: Gastroenteritis Primary Care Provider: Ankur Dexter ED Provider: John Coleman Home Meds and New Rx's Prescriptions: Continued albuterol sulfate [ProAir HFA] 90 mcg/actuation HFA aerosol inhaler 1 puff IH Q6H PRNRF: 0 gabapentin 300 mg capsule 300 mg PO QHS RF: 0 lamotrigine 25 mg tablet 25 mg PO BID RF: 0 amitriptyline 25 mg tablet 25 mg PO QHS RF: 0 prochlorperazine maleate [Compazine] 10 mg tablet 10 mg PO TID PRN (Reason: nausea and vomiting) Qty: 30 RF: 0 dicyclomine 20 mg tablet 20 mg PO TID Qty: 30 RF: 0 omeprazole 40 mg capsule,delayed release(DR/EC) 40 mg PO DAILY RF: 0 clonazepam 1 mg tablet 1 mg PO DAILY AM RF: 0 Discharge Instructions Instructions: Gastroenteritis (ED) Additional Instructions: Home to rest this evening. Small, frequent sips of fluids so that you maintain hydration. You may also begin to slowly advance a bland diet as tolerated. May use the provided Zofran as needed for nausea. Return if you have a fever, abdominal pain, or any other acute concerns. Resume your routine medications. Medical Decision Making 25-year-old female presents from home with complaint of 3 days of nausea, vomiting, loose and watery stool. One episode of vomiting blood this afternoon. No fever. No known sick contacts. She is afebrile, slightly tachycardic in some distress with a blood pressure 157/93. Mildly diffusely tender in her abdomen without focality and without rebound tenderness. Differential diagnosis includes gastroenteritis, dehydration, electrolyte abnormality. IV access established, patient given 2 L fluid bolus and antiemetics. She is referred for laboratory testing. Patient's laboratories show white count 10, hematocrit 44, platelets 539. Chemistries note an anion gap of 18 with BUN 6, creatinine 0.8. LFTs unremarkable, lipase normal, urine appears concentrated with positive ketones. Following 2 L of fluids and antiemetics the patient is improved able to trial liquids by mouth. Do not feel she requires further work-up at this time. Consistent with dehydration and vomiting that is now improved. Will offer antiemetic for home. Stable and improved at this time. HPI General Mode of arrival: ambulatory . Date/Time Provider Initiated Documentation: 08/06/20 14:02 . Limitations to Documentation: no limitations . Information obtained by: patient . History of Present Illness 25 year old F presents to the emergency department with the chief complaint of Nausea and vomiting with loose stool, described as moderate, Quality is described as dull, and is localized to the abdomen. Patient reports no radiation. Patient started experiencing this day(s) and it has been intermittent. No relieving factors improve symptom(s), Eating worsens symptoms . Patient notes denies fever/chills and syncope. Patient did receive the following treatments prior to arrival, none Related Data Home Medications Medication Instructions Recorded Confirmed albuterol sulfate 90 mcg/actuation 1 puff IH Q6H PRN gm 09/07/19 08/06/20 aerosol inhaler dicyclomine 20 mg PO TID #30 tab 02/19/20 08/06/20 prochlorperazine maleate 10 mg PO TID PRN #30 tab 02/19/20 08/06/20 [Compazine] omeprazole 40 mg PO DAILY 04/18/20 08/06/20 amitriptyline 25 mg tablet 25 mg PO QHS 05/08/20 08/06/20 gabapentin 300 mg capsule 300 mg PO QHS 07/01/20 08/06/20 lamotrigine 25 mg tablet 25 mg PO BID tab 07/01/20 08/06/20 clonazepam 1 mg PO DAILY AM 08/06/20 08/06/20 Previous Rx's Medication Instructions Recorded dicyclomine 20 mg PO TID #30 tab 02/19/20 prochlorperazine maleate 10 mg PO TID PRN #30 tab 02/19/20 [Compazine] Allergies Allergy/AdvReac Type Severity Reaction Status Date / Time amoxicillin Allergy Severe Anaphylaxsi Unverified 08/06/20 14:42 s Penicillins Allergy Severe Anaphylaxsi Unverified 08/06/20 14:42 s morphine Allergy Hives Unverified 08/06/20 14:42 General Stated Complaint: Abd Prob YOUSIF: 3 Review of Systems Narrative: Has not had access to her medications for approximately 10 days. No fever. No travel. No suspicious food contacts. 8 systems reviewed and otherwise negative [facility] Medical History Anxiety Anxiety Asthma Asthma, mild intermittent Bone lesion Constipation Diarrhea GERD (gastroesophageal reflux disease) H/O pyelonephritis History of pyelonephritis IBS (irritable bowel syndrome) Left flank pain Left flank pain Migraine headache with aura Migraine headache without aura Nausea and vomiting Pelvic pain Pelvic pain Pneumonia Pneumonia Preventative health care Sepsis Sepsis Shoulder joint pain Tobacco use Vaginal odor Social History Smoking/Tobacco Use Status: Current every day Tobacco Type: cigarettes Smoking risk assessment performed?: Yes Alcohol Intake: current Alcohol Intake frequency: a few times a month Drug use: Occasionally Substance use type: marijuana Household members: spouse and children Housing: house Number of Children: 1 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 Pleasant, well groomed, interactive. HEAD: Normocephalic, atraumatic ENT: Mucous membranes dry, oropharynx unremarkable, External ear exam unremarkable EYES: PERRL, EOMI NECK: Full ROM, no SEYDA, no menigismus CHEST/RESP: Nontender, clear to auscultation bilateral, no wheeze/rhonchi/rales CARDIOVASCULAR: Regular and tachycardic, no murmur, rub yadi. 2+ Rad pulse bilateral ABDOMEN: Soft, tender in the epigastrium without rebound, no mass. +Bowel sounds EXT: Full ROM, no edema, no rash Neuro: Grossly normal neurologic exam, conversant, interactive. Psych: Speech fluent, thoughts congruent, affect normal Course Vital Signs Vital signs: Vital Signs Temperature 36.7 C 08/06/20 14:05 Pulse 104 H 08/06/20 14:05 Respiratory Rate 20 08/06/20 14:05 Blood Pressure 157/93 H 08/06/20 14:05 Pulse Oximetry 99 08/06/20 14:05 Temperature 36.7 C 08/06/20 14:05 Temperature Source Temporal Artery Scan 08/06/20 14:05 Pulse 104 H 08/06/20 14:05 Respiratory Rate 20 08/06/20 14:05 Respiratory Effort Non-Labored 08/06/20 14:13 Blood Pressure 157/93 H 08/06/20 14:05 Blood Pressure Position Sitting 08/06/20 14:05 Pulse Oximetry 99 08/06/20 14:05 Oxygen Delivery Method Room Air 08/06/20 14:05 Oxygen Flow Rate 0 08/06/20 14:05 Pain Level 7 08/06/20 14:05 Lab/Test Results Lab/Test Results: POC- Test(urine) Negative
[2020-08-06 14:27] LABS: Bacteria Few HPF (Negative); C & S Indicated? No; Casts Negative LPF (Negative); Crystals Negative HPF (Negative); Epithelial Cells Moderate HPF (Negative); Mucus Negative (Negative); RBC 0-2 HPF (0-2); WBC 0-2 HPF (0-5)
[2020-08-06 14:34] LABS: Abs Immature Grans 0.11 10^3/uL (0.0-0.06); Absolute Basophil Count 0.06 10^3/uL (0.0-0.2); Absolute Lymphocyte Count 1.89 10^3/uL (1.2-3.4); Absolute Monocyte Count 0.44 10^3/uL (0.1-0.8); Absolute Neutrophil Count 7.98 10^3/uL (1.2-6.7); Basophils % 0.6; HCT 44.4 % (36.0-46.0); HGB 16.1 g/dL (11.2-15.7); MCH 33.6 pg (27.0-33.0); MCHC 36.3 % (32.0-36.0); MCV 92.7 fL (80-95); MPV 8.9 fL (8.0-11.0); Monocytes % 4.2; Neutrophils % 76.2; Nucleated RBC 0 %; Platelet Count 539 10^3/uL (130-400); RBC 4.79 10^6/uL (3.93-5.22); RDW 11.9 % (11.7-14.6); RDW-SD 41.1 fL; WBC 10.48 10^3/uL (4.4-10.8)
[2020-08-06] MEDS: Normal Saline 1,000 ML 1000 ML IV (14:41)
[2020-08-06] MEDS: Ondansetron 4 MG/2 ML VIAL IVP (14:42)
[2020-08-06 14:49] LABS: ALT 32 U/L (14-59); AST 31 U/L (15-37); Albumin 4.3 g/dL (3.4-5.0); Alkaline Phosphatase 111 U/L (46-116); Anion Gap 16.5 mmol/L (3-11); BUN 6 mg/dL (7-18); Bilirubin, Total 0.6 mg/dL (0.2-1.0); CO2 22.5 mmol/L (21.0-32.0); CREATININE 0.8 mg/dL (0.55-1.02); Calcium 10.2 mg/dL (8.5-10.1); Chloride 98 mmol/L (98-107); Glucose 109 mg/dL (74-106); Lipase 156 U/L (73-393); Magnesium 1.8 mg/dL (1.8-2.4); Sodium 137 mmol/L (136-145); Total Protein 9.2 g/dL (6.4-8.2)
--- NOTE | 2020-08-06 14:51 | NUR.NOTE ---
Nursing Note: rounding: pt sitting upright call light within reach. Pt IVF bolus wide open.
[2020-08-06] MEDS: Pantoprazole 40 MG VIAL IVP (15:05)
--- NOTE | 2020-08-06 15:51 | NUR.NOTE ---
Nursing Note:Dr Virginia patelsts this RN to assess pts willingness to participate in PO challenge. Pt reports my nausea is better but I'm not up for it yet. Pt has approx 1200cc IVF yet to infuse. Will reassess.
[2020-08-06 17:12] VITALS: BP 124/80; PULSE 78; RESP 15; O2SAT 98
[2020-08-06] MEDS: Ondansetron O.D.T. 4 MG TABEF, 3 TABS/BTL PO (17:57)
== END 2020-08-06 17:53 | disposition home or self-care (01) ==
PROVIDERS: Emergency Provider Emergency Medicine; PCP Specialist/Technologist Athletic Trainer
DX: K52.89 Other specified noninfective gastroenteritis and colitis (principal); K92.0 Hematemesis
CPT/HCPCS: 36415; 80053; 81025; 83690; 96361; 96374; 96375; 99284; 81003; 81015; 83735; 85025; J2405

== ENCOUNTER 2022-02-01 03:54 | Outpatient (CLI) | payer MEDICAID, SELFPAY | END 2022-02-01 03:55 | disposition home or self-care (01) | LOC: LBO 03:54 | PROVIDERS: PCP Specialist/Technologist Athletic Trainer; Visit Provider Advanced Practice Midwife ==

== ENCOUNTER 2022-02-08 09:02 | Outpatient (CLI) | payer MEDICAID, SELFPAY ==
[2022-02-11 14:32] LABS: Buprenorphine Negative ng/mL (Cutoff: 5.0); Norbuprenorphine Negative ng/mL (Cutoff: 2.5)
== END 2022-02-08 09:03 | disposition home or self-care (01) ==
LOC: LBO 09:02
PROVIDERS: Advanced Practice Midwife; PCP Specialist/Technologist Athletic Trainer; Visit Provider Advanced Practice Midwife
DX: O99.323 Drug use complicating pregnancy, third trimester (principal); Z36.85 Encounter for antenatal screening for Streptococcus B; Z3A.36 36 weeks gestation of pregnancy
CPT/HCPCS: 80307; 87081

== ENCOUNTER → 2022-02-09 02:30 | Outpatient (CLI) | payer MEDICAID, SELFPAY ==
--- NOTE | 2022-02-09 08:15 | DI.US_ITS ---
Exam(s) US OB KUMAR WEIGHT EXAM: US OB KUMAR WEIGHT CLINICAL HISTORY: growth, size less than dates in third trimester,z34.90. TECHNIQUE: Transabdominal obstetrical ultrasound performed. COMPARISON: No exams were available for comparison FINDINGS:: Number of fetuses: One. position: Vertex. Placental location: Anterior, grade 2-3. No evidence of previa. BIOMETRIC DATA: BPD: 88mm = 35+3 weeks HC: 312mm = 35 weeks AC: 320 mm = 36 weeks FL: 70 mm = 35+5 weeks EFW: 2752 Gms = 28% Composite Age: 35+4 weeks EDC: 12 March 2022 Heart Rate: 163BPM Amniotic fluid index: 15.6 cm. Amount of fluid is visually within normal limits. IMPRESSION: size and weight are within the low normal range. DATA REPOSITORY:
== END ==
PROVIDERS: PCP Specialist/Technologist Athletic Trainer; Visit Provider Advanced Practice Midwife
DX: Z34.83 Encounter for supervision of other normal pregnancy, third trimester (principal)
CPT/HCPCS: 76816

== ENCOUNTER 2022-02-22 03:58 | Outpatient (CLI) | payer MEDICAID, SELFPAY ==
[2022-02-22 05:02] VITALS: BP 117/73; PULSE 82; TEMP 209.1; TEMP 98.4
[2022-02-22 05:49] LABS: *AMPHETAMINES SCREEN URINE Negative (Negative); *BARBITURATES SCREEN URINE Negative (Negative); *BENZODIAZEPINES SCREEN URINE Negative (Negative); Cannabinoids THC Positive (Negative); Cocaine Screen,Urine Negative (Negative); METHADONE URINE SCREEN Negative (Negative); OPIATES URINE SCREEN Negative (Negative); Tricyclic Antidepressants Negative (Negative)
[2022-02-22 06:36] LABS: HGB 12.7 g/dL (11.2-15.7); MCH 31.4 pg (27.0-33.0); MCHC 35.3 % (32.0-36.0); MCV 89 fL (80-95); MPV 9.5 fL (8.0-11.0); Platelet Count 359 10^3/uL (130-400); RBC 4.04 10^6/uL (3.93-5.22); RDW 12.9 % (11.7-14.6); RDW-SD 42.5 fL
[2022-02-22 06:47] LABS: Glucose 101 mg/dL (74-106)
[2022-02-22 07:20] LABS: Hemoglobin A1C 5.6 % (<5.7)
[2022-02-22 07:33] LABS: TSH (W/Ref FT4) 0.62 uIU/mL (0.36-3.74)
[2022-02-23 11:01] LABS: Rubella IgG Ab (UVM) Negative (See Note)
[2022-02-23 11:02] LABS: Varicella IgG Antibody Negative (See Note)
== END 2022-02-22 07:15 | disposition home or self-care (01) ==
LOC: LBO 06:33 → OBS 06:36
PROVIDERS: PCP Specialist/Technologist Athletic Trainer; Visit Provider Advanced Practice Midwife
DX: O47.1 False labor at or after 37 completed weeks of gestation (principal); Z3A.38 38 weeks gestation of pregnancy; F41.8 Other specified anxiety disorders
CPT/HCPCS: 59025; 36415; 80307; 82947; 85027; 86787; 86850; 86900; 86901; 83036; 84443; 86762

== ENCOUNTER 2022-02-22 11:28 | Emergency (ER) | payer MEDICAID, SELFPAY ==
[2022-02-22] VITALS (9 sets, daily range): BP systolic 120–137; BP diastolic 74–90; PULSE 98–121; TEMP 36.8; O2SAT 97–98
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
== END 2022-02-22 12:52 | disposition short-term general hospital (02) ==
PROVIDERS: Emergency Provider Physician Assistant; PCP Specialist/Technologist Athletic Trainer
DX: O26.893 Other specified pregnancy related conditions, third trimester (principal); R53.83 Other fatigue; O99.513 Diseases of the respiratory system complicating pregnancy, third trimester; J45.909 Unspecified asthma, uncomplicated; O99.333 Smoking (tobacco) complicating pregnancy, third trimester; F17.210 Nicotine dependence, cigarettes, uncomplicated; Z3A.36 36 weeks gestation of pregnancy
CPT/HCPCS: 99285; 99284

== ENCOUNTER 2022-02-22 12:30 | Outpatient (CLI) | payer MEDICAID, SELFPAY ==
[2022-02-22] MEDS: Acetaminophen 500 MG TAB 1000 MG PO ×2 (06:22→13:47)
[2022-02-22] MEDS: hydrOXYzine PAMOATE 25 MG CAP 50 MG PO (06:22)
--- NOTE | 2022-02-22 06:35 | W.OBNST ---
Date of service: 02/22/22 Time of Service: 06:35 NST Evaluation Reason for NST Reasons for Nonstress Test: FALSE LABOR Gestational Age Gestational Age in Weeks and Days: 38 Weeks and 4Days Test and Monitor Explained Test/Monitor Explained: Test Explained Vital Signs Blood Pressure: 117/73 Urine Results Urine Protein: Negative Urine Ketones: Negative Urine Glucose: Negative Urine Blood: Negative NST Information Date on Monitor: 02/22/22 Time on Monitor: 05:00 Date off Monitor: 02/22/22 Time off Monitor: 06:36 Total Time on Monitor: 96 NST Interventions: PO Hydration Contraction Frequency: 1 per 10-15 minutes NST Evaluation Patient States Movement: Present FHR Baseline: 135 Variability: Moderate 6-25 bpm Accelerations: 15x15 Decelerations: None NST Results: Reactive Note NST Note Note: cvx 1-2/70% soft, posterior, vtx -3, intact membranes NST Reviewed and Verified by: Alaina Beckman
[2022-02-22 06:37] VITALS: BP 117/73
[2022-02-22 13:03] VITALS: BP 122/78; PULSE 92
[2022-02-22 13:14] VITALS: BP 122/78; PULSE 92; RESP 18; TEMP 36.7; O2SAT 99
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
[2022-02-22 14:22] LABS: *AMPHETAMINES SCREEN URINE Negative (Negative); *BARBITURATES SCREEN URINE Negative (Negative); *BENZODIAZEPINES SCREEN URINE Negative (Negative); Cannabinoids THC Positive (Negative); Cocaine Screen,Urine Negative (Negative); METHADONE URINE SCREEN Negative (Negative); OPIATES URINE SCREEN Negative (Negative); Tricyclic Antidepressants Negative (Negative)
[2022-02-22 14:28] VITALS: BP 122/78; PULSE 92; TEMP 36.6
[2022-02-25 12:40] LABS: Fentanyl Interpretation Positive.; Fentanyl by LC-MS/MS 12.9 ng/mL; Norfentanyl by LC-MS/MS 557.7 ng/mL
== END 2022-02-22 14:45 | disposition home or self-care (01) ==
LOC: BCD 12:31 → OBS 12:33
PROVIDERS: PCP Specialist/Technologist Athletic Trainer; Visit Provider Advanced Practice Midwife
DX: O47.1 False labor at or after 37 completed weeks of gestation (principal); F41.8 Other specified anxiety disorders; Z3A.38 38 weeks gestation of pregnancy; V89.2XXA Person injured in unspecified motor-vehicle accident, traffic, initial encounter
CPT/HCPCS: 59025; 36415; 80307; 82947; 85027; 86787; 86850; 86900; 86901; 80354; 83036; 84443; 86762; G0378

== ENCOUNTER 2022-02-27 12:30 | Inpatient (IN) | payer MEDICAID, SELFPAY ==
[2022-02-27] VITALS (123 sets, daily range): BP systolic 110–138; BP diastolic 60–84; PULSE 55–104; RESP 14–22; TEMP 36.5–36.8; O2SAT 91–100; BMI 28.5
[2022-02-27 12:56] LABS: HCT 37.7 % (36.0-46.0); HGB 13.5 g/dL (11.2-15.7); MCH 31.6 pg (27.0-33.0); MCHC 35.8 % (32.0-36.0); MCV 88 fL (80-95); MPV 9.7 fL (8.0-11.0); Platelet Count 351 10^3/uL (130-400); RBC 4.27 10^6/uL (3.93-5.22); RDW 12.7 % (11.7-14.6); RDW-SD 41.1 fL; WBC 13.51 10^3/uL (4.4-10.8)
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
[2022-02-27] MEDS: Normal Saline Flush 10 ML SYR IVP ×2 (13:30→15:15)
[2022-02-27] MEDS: Lactated Ringers 1,000 ML 125 ML IV ×2 (13:35→20:52)
--- NOTE | 2022-02-27 13:38 | PGE_ITS ---
Date of service: 02/27/22 Time of Service: 13:38 Informed Consent Informed Consent: Risk,Benefits,Alternatives Discussed (nitrous oxide use) Pelvic Exam Dilation: 3.5 Effacement (%): 100 station: -1 Cervix Position: mid Consistency: soft Contractions Monitor Mode: External Contraction Frequency(min): 3 Intensity: Moderate/Strong Fetus A Monitor: External (US) Assessment Note: FHR is 130's between contractions with accels to 160 and no deceleration. tracing is broken with contractions due to patient position changes. Assessment and Plan Assessment and plan (1) Normal labor: Status: Acute Assessment and plan: 1. Patient is 3.5 cm 100% -1 with moderately strong contractions. No change in management plans at this time, continue to arrange for epidural and expect vaginal delivery. Objective Abnormal lab results 02/27/22 Range/Units 12:48 WBC 13.51 H (4.4-10.8) 10^3/uL Temp Pulse Resp BP Pulse Ox 98.2 F 77 22 122/81 99 02/27/22 12:32 02/27/22 12:32 02/27/22 12:32 02/27/22 12:32 02/27/22 12:32 Laboratory Results WBC 13.51 10^3/uL (4.4-10.8) H 02/27/22 12:48 RBC 4.27 10^6/uL (3.93-5.22) 02/27/22 12:48 Hgb 13.5 g/dL (11.2-15.7) 02/27/22 12:48 Hct 37.7 % (36.0-46.0) 02/27/22 12:48 MCV 88 fL (80-95) 02/27/22 12:48 MCH 31.6 pg (27.0-33.0) 02/27/22 12:48 MCHC 35.8 % (32.0-36.0) 02/27/22 12:48 RDW 12.7 % (11.7-14.6) 02/27/22 12:48 Plt Count 351 10^3/uL (130-400) 02/27/22 12:48 MPV 9.7 fL (8.0-11.0) 02/27/22 12:48 Subjective Interval history since last seen: property underwriter reviewed that cervix is not 7 cm but 3.5 and very thin which is why it was hard for Nursing to assess. I reviewed that she is actively frank and her cervix will change with the relaxation of epidural. KH Results Hemoglobin/Hematocrit: Hgb 13.5 g/dL (11.2-15.7) 02/27/22 12:48 Hct 37.7 % (36.0-46.0) 02/27/22 12:48 Abnormal Lab Findings: Abnormal Labs 02/27/22 12:48 WBC 13.51 H
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
[2022-02-27] MEDS: FentaNYL/ROPIvacaine 2 mcg/ml and 0.1% 200 ML CADD Cassette EP (14:10)
[2022-02-27] MEDS: fentaNYL 100 MCG/2 ML VIAL (14:15)
--- NOTE | 2022-02-27 14:35 | W.PM.OBNL1 ---
Date of service: 02/27/22 Time of Service: 14:35 Informed Consent Informed Consent: Risk,Benefits,Alternatives Discussed (nitrous oxide use) Contractions Monitor Mode: External Contraction Frequency(min): 3 Contraction Duration(sec): 60 Intensity: Moderate/Strong Fetus A Monitor: External (US) Heart Rate Baseline: 130 Variability: Moderate (6-25 BPM) Categories: Category I Accelerations: 15 X 15 Decelerations: None Assessment and Plan Assessment and plan (1) Normal labor: Status: Acute Assessment and plan: 1. Will continue to observe for comfort increase since epidural and reassess VE in next 1-2 hours. Objective Abnormal lab results 02/27/22 Range/Units 12:48 WBC 13.51 H (4.4-10.8) 10^3/uL Temp Pulse Resp BP Pulse Ox 98.2 F 72 22 120/75 98 02/27/22 12:32 02/27/22 14:34 02/27/22 12:32 02/27/22 14:34 02/27/22 14:34 Laboratory Results WBC 13.51 10^3/uL (4.4-10.8) H 02/27/22 12:48 RBC 4.27 10^6/uL (3.93-5.22) 02/27/22 12:48 Hgb 13.5 g/dL (11.2-15.7) 02/27/22 12:48 Hct 37.7 % (36.0-46.0) 02/27/22 12:48 MCV 88 fL (80-95) 02/27/22 12:48 MCH 31.6 pg (27.0-33.0) 02/27/22 12:48 MCHC 35.8 % (32.0-36.0) 02/27/22 12:48 RDW 12.7 % (11.7-14.6) 02/27/22 12:48 Plt Count 351 10^3/uL (130-400) 02/27/22 12:48 MPV 9.7 fL (8.0-11.0) 02/27/22 12:48 Patient ABO/Rh A Positive 02/27/22 12:48 Antibody Screen NEGATIVE 02/27/22 12:48 Subjective Interval history since last seen: becoming more comfortable since epidural was placed HEALTH SAFETY COORDINATOR still assessing adequacy of relief. KH Results Hemoglobin/Hematocrit: Hgb 13.5 g/dL (11.2-15.7) 02/27/22 12:48 Hct 37.7 % (36.0-46.0) 02/27/22 12:48 Abnormal Lab Findings: Abnormal Labs 02/27/22 12:48 WBC 13.51 H
--- NOTE | 2022-02-27 14:37 | W.ANESNEU ---
Epidural/Spinal Catheter Date Performed: 02/27/22 Procedure Start: 13:40 Procedure Stop: 14:01 Requesting Provider: Elaine Hayward Procedure Location: Operating Room Reason Performed: Labor Epidural Standard Monitors Applied: ECG, Blood Pressure and SpO2 Patient Position: Sitting Sedation Given (Indicate Dose Given): No Sedation given Patient Mental Status: Awake Sterility: Hand Hygiene, Surgical Cap, Surgical Mask, Sterile Drape/Sheet, Eye Protection and Chlorhexidine Procedure Location: L3-L4 Interspace Epidural Needle: Tuohy 17 Guage Needle Length: 3.5 Inch Needle Approach: Midline Epidural Procedure: Skin Prepped, Sterile Drape Placed, 1% Lidocaine to skin and subcutaneous tissue with 25G needle, Tuohy Needle placed, JUDD to Saline Used, Epidural Catheter Placed, Negative Heme, Negative CSF Flow and Other (Negative test dose ) Catheter Placed?: Catheter Placed Test Dose (Indicate Dose Given): 3ml 1.5% Lidocaine with 1:200K Epinephrine Given and Negative Test Dose Loss of Resistance Depth (cm): 7 Catheter depth at skin (cm): 14 Dressing: Tegaderm Applied Epidural Provider Bolus (Indicate Dose Given): Total bolus dose given in 3-5 ml divided doses Additives (Indicate Dose Given ): Fentanyl PF Dose:: 100 mcg Infusion Medication: Medication Infusion Began Medication Infusion: Ropivacaine 0.1% with Fentanyl 2mcg/ml Maintenance Infusion Rate (ml/hour): 10 PCEA Bolus Dose (ml): 5 Block Level: T10 Paresthesia: None Ultrasound: Not Used Number of Attempts (See previous attempts in note section): 1 Procedure Tolerated: No Complications and Patient tolerated well Procedure Outcome: Successful Performed By: Mark Umana Other (not listed above): Dosed epidural with 100 mcg fentanyl, 3 + 3 + 3 cc doses off epidural pump
[2022-02-27] MEDS: Pantoprazole 40 MG VIAL IVP (15:14)
[2022-02-27 15:54] LABS: Source Nasal/Nares
[2022-02-27 16:27] LABS: COVID-19 PCR Negative (Negative)
[2022-02-27 17:55] LABS: *AMPHETAMINES SCREEN URINE Negative (Negative); *BARBITURATES SCREEN URINE Negative (Negative); *BENZODIAZEPINES SCREEN URINE Negative (Negative); Cannabinoids THC Negative (Negative); Cocaine Screen,Urine Negative (Negative); METHADONE URINE SCREEN Negative (Negative); OPIATES URINE SCREEN Negative (Negative); Tricyclic Antidepressants Negative (Negative)
--- NOTE | 2022-02-27 19:10 | PGE_ITS ---
Date of service: 02/27/22 Time of Service: 19:10 Informed Consent Informed Consent: Risk,Benefits,Alternatives Discussed (nitrous oxide use) Pelvic Exam Comments: VE deferred at this time, last VE was 1812 5cm could be stretched to 6, 100, -2 mid position cervix, AROM at that time blood colored fluid. KH Contractions Monitor Mode: Palpation Contraction Frequency(min): 2-3 Contraction Duration(sec): 60 Intensity: Moderate/Strong Fetus A Monitor: External (US) Heart Rate Baseline: 125 Variability: Moderate (6-25 BPM) Categories: Category I Accelerations: 15 X 15 Decelerations: None Amniotic Membrane Status: Ruptured (1812) Rupture Method: Artifical Amniotic Fluid: Bloody Assessment and Plan Assessment and plan (1) Normal labor: Status: Acute Assessment and plan: 1. I offered AROM at 1809 to patient as there was minimal cervical changes. She desired AROM I just want to get this overwith AROM was performed at 1812 for small amount of bloody fluid. 2. Contractions became more uncomfortable for her after AROM but she is doing well managing them and has used epidural button to help with pain. 3. I have also encouraged her to disclose recent Fentanyl in Urine screen done 02/22 to her . UDS today was obtained, and sent as well. Routine UDS is negative for all drugs today. Fentany urine test will be sent out. 4. will reassess in 2 hours or prn for progress. 5. Dr. Osborn is OB medical donation professional today and is aware of patient's arrival, I will update her now in relation to amniotic fluid color as well. Objective Abnormal lab results 02/27/22 Range/Units 12:48 WBC 13.51 H (4.4-10.8) 10^3/uL Temp Pulse Resp BP Pulse Ox 97.9 F 71 14 121/71 100 02/27/22 18:06 02/27/22 19:08 02/27/22 19:09 02/27/22 18:06 02/27/22 19:08 Laboratory Results WBC 13.51 10^3/uL (4.4-10.8) H 02/27/22 12:48 RBC 4.27 10^6/uL (3.93-5.22) 02/27/22 12:48 Hgb 13.5 g/dL (11.2-15.7) 02/27/22 12:48 Hct 37.7 % (36.0-46.0) 02/27/22 12:48 MCV 88 fL (80-95) 02/27/22 12:48 MCH 31.6 pg (27.0-33.0) 02/27/22 12:48 MCHC 35.8 % (32.0-36.0) 02/27/22 12:48 RDW 12.7 % (11.7-14.6) 02/27/22 12:48 Plt Count 351 10^3/uL (130-400) 02/27/22 12:48 MPV 9.7 fL (8.0-11.0) 02/27/22 12:48 Urine Opiates Screen Negative (Negative) 02/27/22 17:26 Urine Methadone Screen Negative (Negative) 02/27/22 17:26 Ur Barbiturates Screen Negative (Negative) 02/27/22 17:26 Ur Tricyclics Screen Negative (Negative) 02/27/22 17:26 Ur Amphetamines Screen Negative (Negative) 02/27/22 17:26 U Benzodiazepines Scrn Negative (Negative) 02/27/22 17:26 Urine Cocaine Screen Negative (Negative) 02/27/22 17:26 Ur THC Screen Negative (Negative) 02/27/22 17:26 COVID-19 Source Nasal/Nares 02/27/22 15:50 SARS-CoV-2 (PCR) Negative (Negative) 02/27/22 15:50 Patient ABO/Rh A Positive 02/27/22 12:48 Antibody Screen NEGATIVE 02/27/22 12:48 Subjective Interval history since last seen: More uncomfortable since AROM at 1813. Has used bolus button for epidural. I have strongly encouraged Jasmyne to share the information about the Fentanyl in her urine on 02/22 with her . I reviewed that it will be discussed in the care of the baby and it would be best if she were the one to disclose the information. So far she has not had that conversation with Jarocho, (Jane as nickname). Results Hemoglobin/Hematocrit: Hgb 13.5 g/dL (11.2-15.7) 02/27/22 12:48 Hct 37.7 % (36.0-46.0) 02/27/22 12:48 Abnormal Lab Findings: Abnormal Labs 02/27/22 12:48 WBC 13.51 H
[2022-02-27] MEDS: Ondansetron 4 MG/2 ML VIAL IVP (20:33)
[2022-02-28] VITALS (12 sets, daily range): BP systolic 118–143; BP diastolic 59–87; PULSE 58–107; RESP 16; TEMP 36.7–36.8; O2SAT 99–100
--- NOTE | 2022-02-28 00:36 | PLAC_PTH ---
PATIENT: Jasmyne Montoya LOC: OBS U#:[id number] AGE/SX: 26/F ROOM: OBS.301 RE02/27/[address]: Elaine Hayward CNM : 1995 BED: A DIS: 03/01/2022 SPEC #: [id number] RECD: 03/01/22 12:51 STATUS: MAYKEL REQ #: [id number] RONNY: 02/28/22 00:[address]: Elaine Hayward DEPT: Surgical Specimen RECD BY: Josefina Doran ENTERED: 03/01/22 12:52 SP TYPE: PLAC OTHR DR: Ankur Dexter Tissues: 1 - PLACENTA (3RD TRIMESTER) Procedures: GROSS AND MICRO LEVEL 5 Comments: [id number]
--- NOTE | 2022-02-28 00:50 | OBVDS_ITS ---
Date of service: 02/28/22 Time of Service: 00:50 OB Labor/ Delivery Information Baby A Delivery Delivery Method: Spontaneaous Presentation: Cephalic Cephalic Position: Vertex Vertex Position: Right Occipital Posterior Cord Description-Baby A: 3 Vessels and Clamped/Cut Cord Description Comment: segment of cord will be obtained for drug screen ing Estimated Blood Loss: 250 Delivery Outcome: Liveborn Infant Complications: none Transferred: Remains with Mother Note: 02/28/22: Jasmyne presented in labor and progressed spontaneously to 10 cm at 2152 on 02/27/22. She had epidural pain management and FHR had been CAT I at that time. She began to push and became effective at pushing over next 30 minutes. Second stage huddle was held at 2155 and again every hour until . FHR tracing was CAT II due to repetative variable deceleration that recovered between contractions with good variability and HR in normal ranges. There was descent at steady slow rate and Mother pushed in Wilbert, right lateral and left lateral and then using bar across bed with good effort and continued progress. Live female delivers ROP over intact perineum at 0019 following 100 second mild shoulder dystocia relieved by Wilbert maneuver, on 02/28/22. Baby is placed skin to skin. Spontaneous cry and tone improves over first minute, 1 minute 8, 5 minute 9. Pitocin IV infusion per orders was begun after baby delivered. Placenta delivered at 0036, intact via mcconnell mechanism. Fundus firmed to U-1 with massage, bi-manual exam showed lower uterine segment was firm and no clots were in lower uterine segment. Perineum was infiltrated with 1% lidocaine prior to delivery as FHR tracing had been CAT II and there was possible need for episiotomy. Once head began to crown, patient pushed baby out completely and no episiotomy was needed. Perineum and vagina are intact. EBL 250cc. Sponge, needle and instrument count are correct. Mother and baby girl Maria Teresa are in satisfactory condition. Expect normal PP course. Jasmyne plans to breast feed. Her has a vasectomy and she is uncertain if she will start contraception PP. Baby Maria Teresa's weight is 7lb6oz . Providers Nurse Flasher Adjuster: Elaine Hayward Nurse: Sruthi Mullins Labor/Delivery Information Number of Babies in Womb: 1 Steroids Given: None Group Beta Strep: Negative Antibiotics Administered: No Rubella Status: Nonimmune Blood Type: A+ Varicella Immunity: Nonimmune Medication in Delivery: none Maternal Complications: None Shoulder Dystocia: Yes Note: Head delivered at 0017, rotated to ROT, anterior shoulder was slow to move with maternal pushing effort. Wilbert maneuver employed and head of bed was lowered. Anterior shoulder delivered without any other maneuvers, even after shoulders delivered there needed to be continued maternal pushing effort and gentle traction until baby's legs were visualized and was completed at 0019. No nuchal cord was noted but cord length was not long enough to allow Mother to bring baby up to her breast level after delivery. KH Stages of Labor Onset of Labor Date: 02/27/22 Onset of Labor Time: 11:30 Complete Dilatation Date: 02/27/22 Complete Dilatation Time: 21:52 Labor - Stage 1 Duration: 0 minutes ROM Baby A: 02/27/22 ROM Baby A: 18:13 Infant Delivery Date-Baby A: 02/28/22 Delivery Time-Baby A: 00:19 Labor Stage 2 Duration: 2 hours and 27 minutes Placenta Delivery Date-Baby A: 02/28/22 Placenta Delivery Time-Baby A: 00:36 Labor-Stage 3 Duration: 17 minutes Total Length of Labor-Baby A: 12 hours and 49 minutes Placenta Cultured: No Placenta Status: Delivered Baby A Gender: Female Gestational Status: Term (39-41.6 wks) weight: 7 lb 6 oz Weight Comment: 3355 g Shoulder Dystocia Delivery Times Date of Delivery of Head: 02/28/22 Time of Delivery of the Head: 00:17 Head to Body Delivery Interval(minutes): 100 seconds Verify No Fundal Pressure Applied Fundal Pressure: No Pressure Applied Arm Under Sympisis Arm Under Symphisis: Left Note: Head delivered at 0017, rotated to ROT, anterior shoulder was slow to move with maternal pushing effort. Wilbert maneuver employed and head of bed was lowered. Anterior shoulder delivered without any other maneuvers, even after shoulders delivered there needed to be continued maternal pushing effort and gentle traction until baby's legs were visualized and was completed at 0019. No nuchal cord was noted but cord length was not long enough to allow Mother to bring baby up to her breast level after delivery. KH Interventions 1st Intervention: Date: 02/28/22 Time: 00:17 SD Intervention: Gentle Traction 2nd Intervention: Date: 02/28/22 Time: 00:18 SD Intervention: McRobert's Maneuver Note: computer does not allow for 0017.30 seconds. McRobert's Maneuver allowed anterior shoulder to release and with encouraged Maternal pushing effort, delivery was complete at 0019 as shoulder was no longer impacted at 0018.30 and baby continued to slowly deliver until 0019. KH
[2022-02-28] MEDS: Ibuprofen 600 MG TAB PO ×3 (02:43→15:38)
[2022-02-28] MEDS: Hamamelis Leaf/Glycerin 100 EACH BOX PR (03:11)
[2022-02-28] MEDS: Dibucaine 1% 28 GM TUBE TP (03:11)
--- NOTE | 2022-02-28 08:47 | OBPPV_ITS ---
Date of service: 02/28/22 Time of Service: 08:30 Assessment and Plan Assessment and plan (1) care following vaginal delivery: Status: Acute Assessment and plan: 1. Normal PP course at this time. Out of bed to BR and doing own ADL's. 2. Continue present management and reassess tomorrow. Subjective Subjective Interval history: Jasmyne is in nursery with baby who has temperature elevation and has IV at this time. Baby is otherwise doing well and able to breast feed. CBC being done, c ultures done on baby. Jasmyne has no fever and feels well but is tired. Patient's Mood: appropriate. positive bonding noted. Exam Physical Exam Vital signs: Temp Pulse Resp BP Pulse Ox 98.2 F 69 16 118/72 99 02/28/22 07:38 02/28/22 07:38 02/28/22 07:38 02/28/22 07:38 02/28/22 00:16 Vital Signs Reviewed: Yes Constitutional Constitutional: no acute distress (concerned due to baby having temp, otherwise doing well.) HEENT Exam HEENT Exam: Normal Neck Exam Neck Exam: Not Done Breast Exam Bilateral: Breast Exam: Normal Nipple Exam: Normal (flat nipples noted) Respiratory Exam Respiratory Exam: Normal Cardiovascular Exam Cardiovascular Exam: Normal Fundal Exam Fundus: Below Umbilicus and Firm Rectal Exam Rectal Exam: Not Done Exam Patient deferred: external exam (in nursery with baby, no exam at this time) and perineal exam Extremities Exam Extremity Exam: Normal Back/Spine/Pelvis Exam Back Exam: Not Done Skin Exam Skin Exam: Normal Neurological Exam Neurological Exam: Normal Psychiatric Exam Psychiatric Exam: Normal Results Hemoglobin/Hematocrit: Hgb 13.5 g/dL (11.2-15.7) 02/27/22 12:48 Hct 37.7 % (36.0-46.0) 02/27/22 12:48 Abnormal Lab Findings: Abnormal Labs 02/27/22 12:48 WBC 13.51 H
[2022-02-28] MEDS: Acetaminophen 325 MG TAB 650 MG PO ×2 (08:59→15:38)
[2022-02-28] MEDS: Docusate Sodium 100 MG CAP PO (15:38)
--- NOTE | 2022-02-28 17:56 | W.ANESPOSTOP ---
Postoperative Evaluation Date, Time and Location Date Performed: 02/28/22 Time Performed: 18:04 Patient Location: Obstetrics Vital Signs Most Recent Imported Vital Signs: Most Recent Vital Signs Temp Pulse Resp BP Pulse Ox 36.8 C 74 16 119/81 100 02/28/22 15:25 02/28/22 15:25 02/28/22 15:25 02/28/22 15:25 02/28/22 15:25 Pain Score Most Recent Pain Score: Most Recent Pain Score Pain Level [Abdomen] 7 02/28/22 15:25 Pain Level 7 02/28/22 15:38 Assessment Mental Status: Awake (Alert & Oriented to Patient Baseline) Airway and Respiratory Function: Patent airway with normal (patient baseline) respiratory exam Cardiovascular Function: Hemodynamically Stable Hydration Status: Adequately Hydrated Nausea & Vomiting: No Nausea or Vomiting Pain: Pain is tolerable per patient Peripheral Nerve Block: Patient did not receive a nerve block
[2022-03-01 04:00] VITALS: BP 124/79; PULSE 65; RESP 17; TEMP 36.9
[2022-03-01] MEDS: Acetaminophen 325 MG TAB 650 MG PO ×2 (04:30→11:00)
[2022-03-01] MEDS: Ibuprofen 600 MG TAB PO ×2 (04:31→11:03)
[2022-03-01 07:35] VITALS: BP 121/83; PULSE 85; RESP 16; TEMP 36.8; O2SAT 100
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
[2022-03-05 11:03] LABS: Fentanyl Interpretation Positive.; Fentanyl by LC-MS/MS 0.9 ng/mL; Norfentanyl by LC-MS/MS 6.9 ng/mL
== END 2022-03-01 11:20 | disposition home or self-care (01) | DRG 806 ==
LOC: ER 12:33 → OBS 12:38
PROVIDERS: Admitting Provider Advanced Practice Midwife; PCP Specialist/Technologist Athletic Trainer; Visit Provider Advanced Practice Midwife
DX: O99.324 Drug use complicating childbirth (principal); O99.354 Diseases of the nervous system complicating childbirth; Z37.0 Single live birth; Z3A.39 39 weeks gestation of pregnancy; Z20.822 Contact with and (suspected) exposure to COVID-19; F12.90 Cannabis use, unspecified, uncomplicated; O99.334 Smoking (tobacco) complicating childbirth; F17.210 Nicotine dependence, cigarettes, uncomplicated; O99.344 Other mental disorders complicating childbirth; F41.8 Other specified anxiety disorders; O99.62 Diseases of the digestive system complicating childbirth; K59.09 Other constipation; K21.9 Gastro-esophageal reflux disease without esophagitis; J45.20 Mild intermittent asthma, uncomplicated; O99.52 Diseases of the respiratory system complicating childbirth; F11.90 Opioid use, unspecified, uncomplicated; O99.314 Alcohol use complicating childbirth; F10.21 Alcohol dependence, in remission; G43.909 Migraine, unspecified, not intractable, without status migrainosus; F81.9 Developmental disorder of scholastic skills, unspecified; O69.3XX0 Labor and delivery complicated by short cord, not applicable or unspecified
CPT/HCPCS: 59409; 80307; 85027; 86850; 86900; 86901; 87635; 80354; 88307; J2405; J3010; J3490

== ENCOUNTER 2022-08-02 15:12 | Outpatient (REF) | payer MEDICAID, SELFPAY ==
[2022-08-02 16:30] LABS: HCT 40.2 % (36.0-46.0); HGB 14.2 g/dL (11.2-15.7); MCH 32.6 pg (27.0-33.0); MCHC 35.3 % (32.0-36.0); MCV 92 fL (80-95); MPV 9.3 fL (8.0-11.0); Platelet Count 442 10^3/uL (130-400); RBC 4.36 10^6/uL (3.93-5.22); RDW-SD 44.1 fL; WBC 11.75 10^3/uL (4.4-10.8)
[2022-08-02 16:55] LABS: ALT 37 U/L (14-59); AST 31 U/L (15-37); Albumin 4.5 g/dL (3.4-5.0); Alkaline Phosphatase 75 U/L (46-116); Anion Gap 5.8 mmol/L (3-11); BUN 13 mg/dL (7-18); Bilirubin, Total 0.3 mg/dL (0.2-1.0); CO2 28.2 mmol/L (21.0-32.0); CREATININE 0.7 mg/dL (0.55-1.02); Calcium 9.5 mg/dL (8.5-10.1); Chloride 103 mmol/L (98-107); Estimated GFR 120.74 (mL/min/1.73m2); Glucose 106 mg/dL (74-106); Potassium 4.7 mmol/L (3.5-5.1); Sodium 137 mmol/L (136-145); TSH (W/Ref FT4) 1.72 uIU/mL (0.36-3.74); Total Protein 7.9 g/dL (6.4-8.2)
[2022-08-02 17:04] LABS: Vitamin D 25 Total 26.5 ng/mL (30-100)
== END 2022-08-02 15:13 | disposition home or self-care (01) ==
LOC: NCHCN 15:12
PROVIDERS: PCP Nurse Practitioner Family; Visit Provider Nurse Practitioner Family
DX: F41.8 Other specified anxiety disorders (principal); G43.909 Migraine, unspecified, not intractable, without status migrainosus; E55.9 Vitamin D deficiency, unspecified
CPT/HCPCS: 80053; 82306; 85027; 84443

== ENCOUNTER 2022-09-23 15:23 | Outpatient (REF) | payer MEDICAID, SELFPAY ==
[2022-09-23 17:43] LABS: Abs Immature Grans 0.05 10^3/uL (0.0-0.06); Absolute Basophil Count 0.06 10^3/uL (0.0-0.2); Absolute Eosinophil Count 0.42 10^3/uL (0.0-0.7); Absolute Lymphocyte Count 3.55 10^3/uL (1.2-3.4); Absolute Monocyte Count 0.71 10^3/uL (0.1-0.8); Absolute Neutrophil Count 3.92 10^3/uL (1.2-6.7); Basophils % 0.7; Eosinophils % 4.8; HCT 43.2 % (36.0-46.0); HGB 15.1 g/dL (11.2-15.7); Immature Grans % 0.6; Lymphocytes % 40.8; MCH 32.8 pg (27.0-33.0); MCV 94 fL (80-95); MPV 9.2 fL (8.0-11.0); Monocytes % 8.2; Neutrophils % 44.9; Platelet Count 480 10^3/uL (130-400); RBC 4.61 10^6/uL (3.93-5.22); RDW 12.7 % (11.7-14.6); RDW-SD 43.5 fL; WBC 8.71 10^3/uL (4.4-10.8)
== END 2022-09-23 15:24 | disposition home or self-care (01) ==
LOC: NCHCN 15:23
PROVIDERS: PCP Nurse Practitioner Family; Visit Provider Nurse Practitioner Family
DX: D72.829 Elevated white blood cell count, unspecified (principal)
CPT/HCPCS: 85025

== ENCOUNTER 2022-11-17 00:52 | Emergency (ER) | payer MEDICAID, SELFPAY ==
[2022-11-17] VITALS (46 sets, daily range): BP systolic 102–119; BP diastolic 64–90; PULSE 55–140; RESP 11–40; TEMP 36.5; O2SAT 94–100
--- NOTE | 2022-11-17 00:45 | RT.EKG_ITS ---
APPROVED REPORT Exam: Resting ECG Reason for Exam: [facility] Patient Location: E HR:101 bpm ECG Measurements Heart Rate 101 AXIS IN 149 P 56 QRSd 103 QRS 22 QT 399 T -2 QTc 519 Conclusion Sinus tachycardia...rate> 99 Probable left atrial enlargement...P >50mS, <-0.10mV V1 Prolonged QT interval...QTc >495mS. Sinus. Prolonged QT. Less than 1mm ST depression in anteiror/lateral leads. No STEMI. I have reviewed and interpreted ECG and agree with software generated interpretation.
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
--- NOTE | 2022-11-17 01:00 | DI.RAD_ITS ---
Exam(s) XR CHEST 2V PA LATERAL EXAM: XR CHEST 2V PA LATERAL CLINICAL HISTORY: seizure, r/o acute disease TECHNIQUE: 2D digital imaging was performed. COMPARISON: CR XR CHEST 2V PA LATERAL from 11/09/2018 FINDINGS: Exam limited by poor pulmonary inflation. HEART: Normal size. Aorta: Not dilated. PULMONARY VASCULATURE: Normal. LUNGS: Clear. PLEURAL SPACE: No pleural effusion or pneumothorax. BONE:Unremarkable for age. IMPRESSION: No acute abnormality. DATA REPOSITORY: RADIATION DOSE DELIVERED:
--- NOTE | 2022-11-17 01:00 | DI.CT_ITS ---
Exam(s) CT HEAD WO EXAM: CT HEAD WO CLINICAL HISTORY: seizure, r/o acute process. TECHNIQUE: Imaging Protocol: Axial computed tomography images with coronal and sagittal reformatted images were created and reviewed COMPARISON: CT CT HEAD WO from 04/18/2020 FINDINGS: Ventricles and Extra axial spaces: Normal in size and morphology for the patient's age. Hemorrhage: None. Cerebral parenchyma: Normal. Midline shift: None. Brainstem/Cerebellum: Normal. Calvarium: Normal. Visualized Paranasal sinuses/Mastoids: Ethmoid sinus opacification. Mild mucosal thickening of the r ight maxillary sinus. Soft Tissues: Unremarkable. IMPRESSION: No acute intracranial process. RADIATION DOSE DELIVERED: 740.5mGy.cm Total DLP DATA REPOSITORY: All CT scans at this facility are submitted to the National Radiology Data Registry (NRDR) Dose Index Registry (DIR) with the [employer] ([employer]). RADIATION OPTIMIZATION: All CT scans at this facility use at least one of these dose optimization te chniques: automated exposure control; mA and/or kV adjustment per patient size (includes targeted exa ms where dose is matched to clinical indication); or iterative reconstruction.
[2022-11-17] MEDS: levETIRAcetam 2,000 MG in Normal Saline 100 ML 400 MG IVPB (01:11)
[2022-11-17] MEDS: Normal Saline 1,000 ML 1000 ML IV ×2 (01:11→05:01)
[2022-11-17 01:14] LABS: Abs Immature Grans 0.03 10^3/uL (0.0-0.06); Absolute Basophil Count 0.05 10^3/uL (0.0-0.2); Absolute Eosinophil Count 0.23 10^3/uL (0.0-0.7); Absolute Lymphocyte Count 3.65 10^3/uL (1.2-3.4); Absolute Monocyte Count 0.51 10^3/uL (0.1-0.8); Absolute Neutrophil Count 2.36 10^3/uL (1.2-6.7); Basophils % 0.7; Eosinophils % 3.4; HCT 38.4 % (36.0-46.0); HGB 13.4 g/dL (11.2-15.7); Immature Grans % 0.4; Lymphocytes % 53.4; MCH 32.5 pg (27.0-33.0); MCHC 34.9 % (32.0-36.0); MCV 93 fL (80-95); Monocytes % 7.5; Neutrophils % 34.6; Platelet Count 373 10^3/uL (130-400); RBC 4.12 10^6/uL (3.93-5.22); RDW 12.4 % (11.7-14.6); RDW-SD 42.2 fL; WBC 6.83 10^3/uL (4.4-10.8)
[2022-11-17 01:19] LABS: Bilirubin Negative (Negative); Blood Negative (Negative); Clarity Sl Cloudy (Clear); Glucose 100 mg/dL (Negative); Ketones Negative (Negative); Leukocyte Esterase Trace (Negative); Nitrite Negative (Negative); Specific Gravity 1.025 (1.005-1.025); Urobilinogen 0.2 mg/dL (Up to 0.2); pH 6.5 (5-8)
[2022-11-17 01:26] LABS: Bacteria Rare HPF (Negative); C & S Indicated? Yes; Crystals Negative HPF (Negative); Epithelial Cells Rare HPF (Negative); Mucus Negative (Negative); RBC 0-2 HPF (0-2)
[2022-11-17 01:29] LABS: ETHANOL BLOOD 25.6 mg/dL (<10)
[2022-11-17 01:31] LABS: *AMPHETAMINES SCREEN URINE Negative (Negative); *BARBITURATES SCREEN URINE Negative (Negative); *BENZODIAZEPINES SCREEN URINE Positive (Negative); Cannabinoids THC Negative (Negative); Cocaine Screen,Urine Negative (Negative); METHADONE URINE SCREEN Positive (Negative); OPIATES URINE SCREEN Negative (Negative); Tricyclic Antidepressants Positive (Negative)
[2022-11-17 01:39] LABS: ALT 29 U/L (14-59); AST 24 U/L (15-37); Albumin 3.9 g/dL (3.4-5.0); Alkaline Phosphatase 83 U/L (46-116); Anion Gap 6.6 mmol/L (3-11); BUN 9 mg/dL (7-18); Bilirubin, Total 0.3 mg/dL (0.2-1.0); CO2 24.4 mmol/L (21.0-32.0); CREATININE 0.8 mg/dL (0.55-1.02); Calcium 8.1 mg/dL (8.5-10.1); Chloride 105 mmol/L (98-107); Estimated GFR 102.86 (mL/min/1.73m2); Glucose 199 mg/dL (74-106); Magnesium 1.7 mg/dL (1.8-2.4); Sodium 136 mmol/L (136-145); Total Protein 7.2 g/dL (6.4-8.2); Troponin I < 50 ng/L (<or=60)
[2022-11-17 01:40] LABS: Potassium 2.8 mmol/L (3.5-5.1)
[2022-11-17] MEDS: MAGNESIUM SULFATE 1 GM/100 ML BAG IVPB (02:15)
[2022-11-17] MEDS: POTASSIUM CHLORIDE 20 MEQ/100 ML BAG 50 MEQ IVPB (02:15)
--- NOTE | 2022-11-17 03:30 | DI.VRAD_ITS ---
PROCEDURE INFORMATION: Exam: CT Head Without Contrast Exam date and time: 11/17/2022 1:31 AM Age: 27 years old Clinical indication: Other: Seizure, R/O acute process TECHNIQUE: Imaging protocol: Computed tomography of the head without contrast. Radiation optimization: All CT scans at this facility use at least one of these dose optimization techniques: automated exposure control; mA and/or kV adjustment per patient size (includes targeted exams where dose is matched to clinical indication); or iterative reconstruction. COMPARISON: CT HEAD WO 04/18/2020 9:20 AM FINDINGS: Brain: Normal. No hemorrhage. Unremarkable white matter. No mass effect. Cerebral ventricles: No ventriculomegaly. Paranasal sinuses: Mucous membrane thickening within the visualized paranasal sinuses. Mastoid air cells: Visualized mastoid air cells are well aerated. Bones/joints: Unremarkable. No acute fracture. Soft tissues: Unremarkable. IMPRESSION: No acute intracranial findings. Dictated and Authenticated by: Ronaldo Crowder MD. Ordering:SANDI Sheldon MD
--- NOTE | 2022-11-17 03:33 | DI.VRAD_ITS ---
PROCEDURE INFORMATION: Exam: XR Chest Exam date and time: 11/17/2022 1:36 AM Age: 27 years old Clinical indication: Other: Seizure, R/O acute process TECHNIQUE: Imaging protocol: Radiologic exam of the chest. Views: 2 views. COMPARISON: CR XR CHEST 2V PA LATERAL 11/09/2018 9:10 AM FINDINGS: Lungs: Unremarkable. No consolidation. Pleural spaces: Unremarkable. No pleural effusion. No pneumothorax. Heart/Mediastinum: Unremarkable. No cardiomegaly. Bones/joints: Unremarkable. IMPRESSION: No acute findings. Dictated and Authenticated by: Ronaldo Crowder MD. Ordering:SANDI Sheldon MD
--- NOTE | 2022-11-17 03:39 | NUR.NOTE ---
Referral faxed to [facility] neurology to f/u in a week for seizure.Nursing Note:
[2022-11-17] MEDS: Calcium Carbonate *TUMS* 500 MG CHEW 1000 MG PO ×2 (03:46→06:44)
[2022-11-17 06:33] LABS: Anion Gap 9.2 mmol/L (3-11); BUN 9 mg/dL (7-18); CO2 23.8 mmol/L (21.0-32.0); CREATININE 0.7 mg/dL (0.55-1.02); Calcium 7.9 mg/dL (8.5-10.1); Chloride 108 mmol/L (98-107); Estimated GFR 120.74 (mL/min/1.73m2); Glucose 89 mg/dL (74-106); Potassium 3.8 mmol/L (3.5-5.1); Sodium 141 mmol/L (136-145)
--- NOTE | 2022-11-17 07:59 | NUR.NOTE ---
Nursing Note: Accessed pt chart for Dirk Irving. He inquired about the disposition of the patient. He anastacio her in by ambulance.
== END 2022-11-17 07:00 | disposition home or self-care (01) ==
PROVIDERS: Emergency Provider Physician Assistant; PCP Nurse Practitioner Family
DX: R56.9 Unspecified convulsions (principal); F32.A Depression, unspecified; F11.10 Opioid abuse, uncomplicated; F17.210 Nicotine dependence, cigarettes, uncomplicated; F41.9 Anxiety disorder, unspecified; J45.20 Mild intermittent asthma, uncomplicated
CPT/HCPCS: 36415; 80048; 80053; 80307; 93005; 96365; 96367; 99284; 70450; 71046; 80320; 81003; 81015; 83735; 84484; 85025; 87086; 93010; J1953; J3475; J3480

== ENCOUNTER 2023-01-07 15:26 | Outpatient (REF) | payer MEDICAID, SELFPAY ==
[2023-01-07 21:15] LABS: Epithelial Cells Few HPF (Negative); WBC >50 HPF (0-5)
[2023-01-07 21:16] LABS: Bacteria Few HPF (Negative); C & S Indicated? C&S Done As Ordered; Casts Negative LPF (Negative); Crystals Negative HPF (Negative); Mucus Negative (Negative)
== END 2023-01-07 15:27 | disposition home or self-care (01) ==
LOC: LBN 15:26
PROVIDERS: PCP Nurse Practitioner Family; Visit Provider Physician Assistant Medical
DX: R10.9 Unspecified abdominal pain (principal); B96.29 Other Escherichia coli [E. coli] as the cause of diseases classified elsewhere
CPT/HCPCS: 87077; 81015; 87086; 87186

== ENCOUNTER → 2023-09-09 00:52 | Outpatient (CLI) | payer MEDICAID, SELFPAY ==
--- NOTE | 2023-09-09 | DI.MRI_ITS ---
Exam(s) MR BRAIN WO EXAM: MR BRAIN WO CLINICAL HISTORY: SEIZURE DISORDER G40.909 EPILEPSY TECHNIQUE: Multiplanar multisequence MRI of the brain was performed. COMPARISON: CT CT HEAD WO from 04/18/[address] HEAD WO from 11/17/2022 FINDINGS: VENTRICLES AND EXTRA AXIAL SPACES: Normal in size and morphology for the patient's age. MIDLINE SHIFT: None. CEREBRAL PARENCHYMA: No focus of restricted diffusion to suggest acute infarct. No space-occupying le ramez identified. The temporal lobes are symmetric with normal signal. HEMORRHAGE: None. BRAINSTEM/CEREBELLUM: Normal. CALVARIUM: Normal. VISUALIZED PARANASAL SINUSES/MASTOIDS:Mucous retention cysts are seen in the right maxillary sinus. MINTO OF [place]: Normal flow void. PITUITARY GLAND: Unremarkable. OTHER FINDINGS: None. IMPRESSION: Unremarkable MRI of the brain. DATA REPOSITORY:
== END ==
PROVIDERS: PCP Nurse Practitioner Family; Visit Provider Nurse Practitioner Family
DX: G40.909 Epilepsy, unspecified, not intractable, without status epilepticus (principal)
CPT/HCPCS: 70551

== ENCOUNTER 2023-09-23 11:18 | Emergency (ER) | payer MEDICAID, SELFPAY ==
[2023-09-23 11:22] VITALS: BP 117/73; PULSE 88; RESP 16; TEMP 36.1; O2SAT 99
--- NOTE | 2023-09-23 11:30 | RT.EKG_ITS ---
APPROVED REPORT Exam: Resting ECG Reason for Exam: seizure Patient Location: E HR:79 bpm ECG Measurements Heart Rate 79 AXIS LA 151 P 5 QRSd 97 QRS 17 QT 397 T 5 QTc 455 Conclusion Sinus rhythm 79 normal axis no stemi
[2023-09-23] MEDS: PHENobarbital 130 MG/ML VIAL 260 MG IVP (11:48)
[2023-09-23] MEDS: Normal Saline 1,000 ML 1000 ML IV (11:48)
[2023-09-23 12:02] LABS: Abs Immature Grans 0.08 10^3/uL (0.0-0.06); Absolute Basophil Count 0.04 10^3/uL (0.0-0.2); Absolute Eosinophil Count 0.01 10^3/uL (0.0-0.7); Absolute Lymphocyte Count 1.03 10^3/uL (1.2-3.4); Absolute Neutrophil Count 12.95 10^3/uL (1.2-6.7); Basophils % 0.3; Eosinophils % 0.1; HCT 40.2 % (36.0-46.0); Immature Grans % 0.5; Lymphocytes % 6.9; MCH 34.1 pg (27.0-33.0); MCHC 34.8 % (32.0-36.0); MCV 98 fL (80-95); MPV 9.1 fL (8.0-11.0); Monocytes % 5.2; Platelet Count 389 10^3/uL (130-400); RBC 4.11 10^6/uL (3.93-5.22); RDW 13.4 % (11.7-14.6); RDW-SD 48.9 fL; WBC 14.89 10^3/uL (4.4-10.8)
[2023-09-23 12:06] LABS: Absolute Monocyte Count 0.77 10^3/uL (0.1-0.8)
[2023-09-23 12:22] LABS: ALT 19 U/L (14-59); AST 21 U/L (15-37); Albumin 3.9 g/dL (3.4-5.0); Alkaline Phosphatase 61 U/L (46-116); Anion Gap 9.9 mmol/L (3-11); BUN 12 mg/dL (7-18); Bilirubin, Total 0.6 mg/dL (0.2-1.0); CO2 25.1 mmol/L (21.0-32.0); CREATININE 0.7 mg/dL (0.55-1.02); Calcium 8.9 mg/dL (8.5-10.1); Chloride 102 mmol/L (98-107); Estimated GFR 119.99 (mL/min/1.73m2); Glucose 109 mg/dL (74-106); Magnesium 1.9 mg/dL (1.8-2.4); Potassium 3.7 mmol/L (3.5-5.1); Sodium 137 mmol/L (136-145); Total Protein 7.5 g/dL (6.4-8.2)
[2023-09-23 12:25] LABS: ETHANOL BLOOD < 3.0 mg/dL (<10)
[2023-09-23 13:17] VITALS: BP 110/76; PULSE 76; RESP 16; O2SAT 98
[2023-09-23 13:17] LABS: Bilirubin Negative (Negative); Blood Negative (Negative); Clarity Clear (Clear); Glucose Negative (Negative); Ketones Negative (Negative); Leukocyte Esterase Negative (Negative); Nitrite Negative (Negative); Specific Gravity 1.015 (1.005-1.025); Urobilinogen 0.2 mg/dL (Up to 0.2); pH 5.5 (5-8)
[2023-09-23 13:24] LABS: *AMPHETAMINES SCREEN URINE Negative (Negative); *BARBITURATES SCREEN URINE Positive (Negative); *BENZODIAZEPINES SCREEN URINE Negative (Negative); Cannabinoids THC Positive (Negative); Cocaine Screen,Urine Negative (Negative); METHADONE URINE SCREEN Negative (Negative); OPIATES URINE SCREEN Negative (Negative)
[2023-09-23 13:26] LABS: Tricyclic Antidepressants Negative (Negative)
[2023-09-23 13:48] VITALS: BP 121/80; PULSE 76; RESP 14; O2SAT 97
[2023-09-23] MEDS: Acetaminophen 500 MG TAB 1000 MG PO (13:48)
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
== END 2023-09-23 13:49 | disposition home or self-care (01) ==
PROVIDERS: Emergency Provider Emergency Medicine; PCP Nurse Practitioner Family
DX: G40.909 Epilepsy, unspecified, not intractable, without status epilepticus (principal); R11.10 Vomiting, unspecified; F17.210 Nicotine dependence, cigarettes, uncomplicated
CPT/HCPCS: 80053; 80307; 93005; 96361; 96374; 99284; 80320; 81003; 83735; 85025; 93010; J2560

== ENCOUNTER 2023-10-28 01:22 | Outpatient (CLI) | payer MEDICAID, SELFPAY ==
--- NOTE | 2023-10-31 20:08 | PDOC.EEG_ITS ---
Neurology EEG EEG: [facility] Department of Neurology LONG-TERM AMBULATORY EEG REPORT Date of Recordin10/28/23 at to 10/29/23 at 8:44:01 Interpreting Physician: Dr. Fiordaliza Jimenez PCP/Referring Provider: Jo Baum NP Reason for study: Ms. Montoya is a 28 year-old with one year of spells concerning for convulsive and non-convulsive seizures, complicated by ETOH use. Current Medications: Home Medications Medication Instructions Recorded Confirmed Type albuterol sulfate 90 mcg/actuation 1 puff inhalation Q6H PRN 09/07/19 09/28/23 History aerosol inhaler (ProAir HFA) ibuprofen 600 mg tablet 600 mg PO Q6H PRN PRN #90 tabs 03/01/22 09/28/23 Rx amitriptyline 25 mg tablet 25 mg PO QHS 08/03/22 09/28/23 History gabapentin 100 mg capsule 100 mg PO DAILY 08/03/22 09/28/23 History levetiracetam 500 mg tablet 500 mg PO BID #60 tabs 09/28/23 09/28/23 Rx lidocaine HCl 2 % mucosal solution 1 applic mucous membrane QID PRN 09/28/23 09/28/23 Rx (Lidocaine Viscous) pain on tongue #100 mL METHODS: An 18-channel digitized electroencephalogram was recorded in the ambulatory setting with video. The 10/20 international system of electrode placement was used and bipolar and referential electrode montages were recorded. In addition to EEG the patient was monitored for EKG and by video. Activation procedures of photic stimulation and hyperventilation were performed if applicable. The duration of the recording was ~17 hours. DESCRIPTION OF EEG: Waking background activity: During maximal wakefulness a 10-Hz posterior background rhythm was present which was well-modulated, symmetrical, reactive to eye opening, and of moderate voltage. Faster frequencies were present in the bi lateral anterior head regions. There was a normal anterior-posterior voltage gradient. Drowsy and sleeping background activity: During drowsiness, there was attenuation of the posterior dominant background rhythm and vertex waves. Normal stage II and III sleep was present with symmetrical sleep spindles, K- complexes, and vertex waves with slowing of the background rhythm to delta/theta frequencies. REM sleep manifested by rapid lateral eye movements and faster background rhythms was recorded. Arousal was unremarkable. Interictal abnormalities: none. Ictal findings: No events captured. Activating Procedures: Photic stimulation was performed which produced no posterior driving response. Hyperventilation was performed with moderate effort and produced no physiological slowing of the background. EKG: EKG revealed normal sinus rhythm. INTERPRETATION: This long-term EEG is normal during the awake and sleep states as well as during the activation procedures. PRIOR EEG: none CLINICAL CORRELATION: No focal regions of cerebral dysfunction or epileptiform activity was present. Epilepsy remains a clinical diagnosis and a normal EEG does not rule out epilepsy. Clinical correlation is advised. Fiordaliza Jimenez MD Date of service: 10/28/23
== END 2023-10-28 01:23 | disposition home or self-care (01) ==
LOC: RT 01:23
PROVIDERS: PCP Nurse Practitioner Family; Visit Provider Psychiatry & Neurology Neurology
DX: R56.9 Unspecified convulsions (principal); F10.90 Alcohol use, unspecified, uncomplicated
CPT/HCPCS: 95714; 95720

== ENCOUNTER 2023-11-15 13:40 | Emergency (ER) | payer MEDICAID, SELFPAY ==
[2023-11-15] VITALS (19 sets, daily range): BP systolic 114–158; BP diastolic 72–117; PULSE 100–131; RESP 9–42; TEMP 37; O2SAT 98
--- NOTE | 2023-11-15 13:45 | RT.EKG_ITS ---
APPROVED REPORT Exam: Resting ECG Reason for Exam: chest pain Patient Location: E HR:106 bpm ECG Measurements Heart Rate 106 AXIS WI 142 P 58 QRSd 100 QRS 10 QT 353 T -12 QTc 468 Conclusion Sinus tachycardia...rate> 99 Right atrial enlargement...P>0.25mV 2 lds or<-0.24mV aVR/aVL Nonspecific T abnormalities, anterior leads...T <-0.10mV, V2-V4 sinus tachycardia, normal axis, consider st seg depressions inferior leads
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
--- NOTE | 2023-11-15 14:15 | DI.RAD_ITS ---
Exam(s) XR CHEST 2V PA LATERAL EXAM: XR CHEST 2V PA LATERAL CLINICAL HISTORY: Chest pain, post seizure/cpr TECHNIQUE: 2D digital imaging was performed of the chest. Two images were obtained. PA and lateral views were obtained. COMPARISON: CR,XR XR CHEST 2V PA LATERAL from 11/17/2022 FINDINGS: MEDIASTINUM: Normal. HEART: Normal. PULMONARY VASCULATURE: Normal. LUNGS: Clear. PLEURAL SPACE: No pleural effusion or pneumothorax. BONE:Within normal limits for the patient's age. OTHER FINDINGS:Normal. IMPRESSION: No acute pulmonary findings. DATA REPOSITORY: RADIATION DOSE DELIVERED:
[2023-11-15] MEDS: Normal Saline 1,000 ML 1000 ML IV (14:50)
[2023-11-15 15:12] LABS: Abs Immature Grans 0.11 10^3/uL (0.0-0.06); Absolute Basophil Count 0.06 10^3/uL (0.0-0.2); Absolute Eosinophil Count 0.11 10^3/uL (0.0-0.7); Absolute Lymphocyte Count 2.79 10^3/uL (1.2-3.4); Absolute Monocyte Count 0.69 10^3/uL (0.1-0.8); Absolute Neutrophil Count 6.61 10^3/uL (1.2-6.7); Basophils % 0.6 %; Eosinophils % 1.1 %; HCT 40.2 % (36.0-46.0); HGB 14.4 g/dL (11.2-15.7); Immature Grans % 1.1 %; Lymphocytes % 26.9 %; MCH 34.4 pg (27.0-33.0); MCHC 35.8 % (32.0-36.0); MCV 96 fL (80-95); MPV 9.1 fL (8.0-11.0); Monocytes % 6.7 %; Neutrophils % 63.6 %; Platelet Count 409 10^3/uL (130-400); RBC 4.18 10^6/uL (3.93-5.22); RDW 12.8 % (11.7-14.6); RDW-SD 45.4 fL; WBC 10.37 10^3/uL (4.4-10.8)
[2023-11-15 15:39] LABS: Bilirubin Negative (Negative); Blood Negative (Negative); Clarity Clear (Clear); Glucose Negative (Negative); Ketones Negative (Negative); Leukocyte Esterase Negative (Negative); Nitrite Negative (Negative); Specific Gravity <= 1.005 (1.005-1.025); Urobilinogen 0.2 mg/dL (Up to 0.2); pH 5.5 (5-8)
[2023-11-15 15:39] LABS: ALT 84 U/L (14-59); AST 99 U/L (15-37); Albumin 4.4 g/dL (3.4-5.0); Alkaline Phosphatase 68 U/L (46-116); Anion Gap 11.6 mmol/L (3-11); BUN 18 mg/dL (7-18); Bilirubin, Total 0.5 mg/dL (0.2-1.0); CO2 22.4 mmol/L (21.0-32.0); CREATININE 0.8 mg/dL (0.55-1.02); Calcium 9.1 mg/dL (8.5-10.1); Chloride 105 mmol/L (98-107); Estimated GFR 102.22 (mL/min/1.73m2); Glucose 123 mg/dL (74-106); Magnesium 1.9 mg/dL (1.8-2.4); Potassium 3.9 mmol/L (3.5-5.1); Sodium 139 mmol/L (136-145); TSH (W/Ref FT4) 9.26 uIU/mL (0.36-3.74); Total Protein 8.2 g/dL (6.4-8.2)
[2023-11-15 15:40] LABS: ETHANOL BLOOD < 3.0 mg/dL (<10)
[2023-11-15] MEDS: levETIRAcetam 500 MG in Normal Saline 100 ML 400 MG IVPB (15:42)
[2023-11-15] MEDS: LORazepam 2 MG/ML VIAL 0.5 MG IVP (15:42)
[2023-11-15 15:53] LABS: *AMPHETAMINES SCREEN URINE Negative (Negative); *BARBITURATES SCREEN URINE Negative (Negative); *BENZODIAZEPINES SCREEN URINE Negative (Negative); Cannabinoids THC Negative (Negative); Cocaine Screen,Urine Negative (Negative); METHADONE URINE SCREEN Negative (Negative); OPIATES URINE SCREEN Negative (Negative); Tricyclic Antidepressants Negative (Negative)
[2023-11-15 15:56] LABS: FREE T4 0.89 ng/dL (0.76-1.46)
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
--- NOTE | 2023-11-15 16:59 | DI.CT_ITS ---
Exam(s) CT HEAD WO EXAM: CT HEAD WO CLINICAL HISTORY: Seizure. TECHNIQUE: Imaging Protocol: Axial computed tomography images with coronal and sagittal reformatted images were created and reviewed COMPARISON: CT CT HEAD WO from 04/18/[address] HEAD WO from 11/17/2022 FINDINGS: Ventricles and Extra axial spaces: Normal in size and morphology for the patient's age. Hemorrhage: None. Cerebral parenchyma: Normal. Midline shift: None. Brainstem/Cerebellum: Normal. Calvarium: Normal. Visualized Paranasal sinuses/Mastoids: Clear. Soft Tissues: Unremarkable. IMPRESSION: No acute intracranial process. RADIATION DOSE DELIVERED: 702.83mGy.cm Total DLP DATA REPOSITORY: All CT scans at this facility are submitted to the National Radiology Data Registry (NRDR) Dose Index Registry (DIR) with the [employer] (ACR). RADIATION OPTIMIZATION: All CT scans at this facility use at least one of these dose optimization te chniques: automated exposure control; mA and/or kV adjustment per patient size (includes targeted exa ms where dose is matched to clinical indication); or iterative reconstruction.
[2023-11-15 17:11] LABS: Creatine Kinase 94 U/L (26-192); Troponin I < 50 ng/L (< or =60)
[2023-11-15] MEDS: levETIRAcetam 1,000 MG in Normal Saline 100 ML 400 MG IVPB (17:18)
[2023-11-18 10:57] LABS: Levetiracetam <1.0 mcg/mL
== END 2023-11-15 18:36 | disposition home or self-care (01) ==
PROVIDERS: Registered Nurse Emergency; Emergency Provider Physician Assistant; PCP Nurse Practitioner Family
DX: R56.9 Unspecified convulsions (principal); R07.9 Chest pain, unspecified; M79.602 Pain in left arm
CPT/HCPCS: 00123; 80053; 80307; 82550; 93005; 96361; 96365; 96366; 96375; 99284; 70450; 71046; 80177; 80320; 81003; 83605; 83735; 84439; 84443; 84484; 85025; 93010; 99283; J1953; J2060

== ENCOUNTER 2024-06-21 15:29 | Outpatient (REF) | payer MEDICAID, SELFPAY ==
--- OUTSIDE RECORDS SUMMARY | 2024-06-21 15:31 | XMS_ITS | Referral Summary ---
Author Organization [facility] Address [address] [place] [address] Care Team Providers Care Spa Experience Coordinator Name Role Phone Ankur Dexter PA-C Primary Care Provider [phone] Social History Tobacco Use Types Packs/Day Years Used Date Smoking Tobacco: Never Assessed Interpersonal Safety Answer Date Record ed Physically Hurt Never 05/27/2020 Verbally Threaten Not on file 05/27/2020 Comments Unknown Sex and Gender Information Value Date Recorded Sex Assigned at Not on file Legal Sex Female 14:14 EDT Gender Identity Not on file Sexual Orientation Not on file Plan of Treatment Not on file Insurance MEDICAID [place] Care Teams Spa Experience Coordinator Relationship Specialty Start Date End Date Ankur Dexter PA-C PCP - General 02/01/22
--- OUTSIDE RECORDS SUMMARY | 2024-06-21 15:31 | XMS_ITS | Clinical Summary ---
Author Organization [facility] Address [address] [place] [id number] Care Team Providers Care [employer] Torque Tester Name Role Phone Ankur Dexter PA-C Primary Care Provider [phone] Social History Tobacco Use Types Packs/Day Years Used Date Smoking Tobacco: Never Assessed Interpersonal Safety Answer Date Record ed Physically Hurt Never 05/27/2020 Verbally Threaten Not on file 05/27/2020 Comments Unknown Sex and Gender Information Value Date Recorded Sex Assigned at Not on file Legal Sex Female 14:14 EDT Gender Identity Not on file Sexual Orientation Not on file Plan of Treatment Health Maintenance Due Date Last Done Comments Hepatitis C Screen 1994 Hepatitis B Vaccine (1 of 3 - 19+ 3-dose series) 03/22 COVID-19 Vaccine (2023- season) 2024 Insurance MEDICAID [place] Care Teams [employer] Torque Tester Relationship Specialty Start Date End Date Ankur Dexter PA-C PCP - General 02/01/22
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
--- OUTSIDE RECORDS SUMMARY | 2024-06-21 15:32 | XMS_ITS | Encounter Summary ---
Author Organization [facility] Address [address] [place] [address] Care Team Providers Care Freight Rate Analyst Name Role Phone Ankur Dexter PA-C Primary Care Provider [phone] Encounter Details Date Type Department Care Team (Late st Contact Info) Description 02/22/2022 Lab Requisition [facility] Pathology & Laboratory Medicine - [facility] [address] [place] [address] Outr Resulting Lab, Provider Social History Tobacco Use Types Packs/Day Years [...] Procedure Name Priority Date/Time Associated Diagnosis Comments VARICELLA IGG ANTIBODY Routine 02/22/2022 6:20 EDT documented in this encounter Results * VARICELLA IGG ANTIBODY (02/22/2022 6:20 EDT) Varicella IgG Ab Negative See Note 02/23/2022 10:57 EDT [facility] Comment:Absence of detectabl e Varicella Zoster virus IgG antibodies. A negative result generally indicates no detectable antibody, but does not rule out acute infection. If VZV exposure is suspected, a second sample should be collected and tested no less than one or two weeks later. Blood VENOUS BLOOD / Unknown 02/22/2022 6:20 EDT 02/22/2022 17:09 EDT us Provider Outr Resulting Lab IMMUNOLOGY AND SEROL OGY ORDERABLES Final Result [facility] [address] [place] [address] documented in this encounter Visit Diagnoses Not on filedocumented in this encounter Care Teams Freight Rate Analyst Relationship Specialty Start Date End Date Ankur Dexter PA-C PCP - General 02/01/22 documented as of this encounter
--- OUTSIDE RECORDS SUMMARY | 2024-06-21 15:32 | XMS_ITS | Encounter Summary ---
Author Organization [facility] Address [address] [place] [address] Care Team Providers Care Geriatric Case Manager Name Role Phone Ankur Dexter PA-C Primary Care Provider [phone] Encounter Details Date Type Department Care Team (Late st Contact Info) Description 02/22/2022 Lab Requisition [facility] Pathology & Laboratory Medicine - [facility] [address] [place] [address] Outr Resulting Lab, Provider Social History Tobacco [...] Procedure Name Priority Date/Time Associated Diagnosis Comments RUBELLA IGG ANTIBODY Routine 02/22/2022 6:20 EDT documented in this encounter Results * RUBELLA IGG ANTIBODY (02/22/2022 6:20 EDT) Rubella IgG Ab Negative See Note 02/23/2022 10:56 EDT [facility] Comment:Sample is considered negative for IgG antibodies to Rubella virus. A negative result presumes that immunity has not been acquired. If exposure to Rubella virus is suspected despite a negative finding, a second specimen should be collected and tested for Rubella IgG Ab one or two weeks later. Blood VENOUS BLOOD / Unknown 02/22/2022 6:20 EDT 02/22/2022 17:09 EDT us Provider Outr Resulting Lab CHEMISTRY & BLOOD GA S ORDERABLES Final Result [facility] [address] [place] [address] documented in this encounter Visit Diagnoses Not on filedocumented in this encounter Care Teams Geriatric Case Manager Relationship Specialty Start Date End Date Ankur Dexter PA-C PCP - General 02/01/22 documented as of this encounter
--- OUTSIDE RECORDS SUMMARY | 2024-06-21 15:32 | XMS_ITS | Encounter Summary ---
Author Organization [facility] Address [address] [place] [address] Care Team Providers Care Geophysical Engineer Name Role Phone Ankur Dexter PA-C Primary Care Provider [phone] [phone] Encounter Details Date Type Department Care Team (Latest Contact Info) Description 04/07/2020 Lab Requisition [facility] Pathology & Laboratory Medicine - [facility] [address] [place] [address] Jo Baum [address] [place], [place] [id number] Encounter for gynecological examination (general) (routine) without abnormal findings Social History Tobacco Use Types Packs/Day Years Used Date Smoking Tobacco: Never Assessed Comments Unknown Sex and Gender Information Value Date Recorded Sex Assigned at Not on file Legal Sex Female 14:14 EDT Gender Identity Not on file Sexual Orientation Not on file documented as of this encounter Plan of Treatment Not on file documented as of this encounter Procedures Procedure Name Priority Date/Time Associated Diagnosis Comments PAP TEST Today 04/03/2020 4:30 EDT Encounter for gynecological examination (general) (routine) without abnormal findings documented in this encounter Results * PAP TEST (04/03/2020 4:30 EDT) Specimens A. Cervix and/or Endocervix , ThinPrep Imaging System with Manual Evaluation 04/11/2020 15:22 EDT [facility] Specimen Adequacy Satisfactory for Evaluation - transformation zone component present 04/11/2020 15:22 EDT [facility] General Categorization Negative for intraepithelial lesion or malignancy 04/11/2020 15:22 EDT [facility] Descriptive Diagnosis Shift in heath present suggestive of bacterial vaginosis. 04/11/2020 15:22 EDT [facility] Attestation . 04/11/2020 15:22 EDT [facility] at 1522 Clinical History See below 04/11/20 20 15:22 EDT [facility] Performing Lab [facility] 04/11/2020 15:22 EDT [facility] Scanned Images 04/11/2020 15:22 EDT [facility] Papanicolaou smear specimen (specimen) CERVIX UTERI STRUCTURE / Unknown 04/03/2020 4:30 EDT 04/07/2020 14:17 EDT us Jo Baum PATHOLOGY ORDERABLES Final Result [facility] [address] [place] [address] documented in this encounter Visit Diagnoses Diagnosis Encounter for gynecological examination (general) (routine) without abnormal findings documented in this encounter Care Teams Geophysical Engineer Relationship Specialty Start Date End Date Ankur Dexter PA-C PCP - General 02/01/22 documented as of this encounter
[2024-06-21 15:37] LABS: FREE T4 0.74 ng/dL (0.76-1.46); TSH 1.88 uIU/mL (0.36-3.74)
[2024-06-21 21:56] LABS: T3,Free 3.8 pg/mL (2.8-5.3)
[2024-06-21 23:12] LABS: HIV-1/2 Ag & Ab Screen Negative (Negative)
[2024-06-25 23:43] LABS: Hepatitis C Ab w Rflx HCV PCR Negative (Negative)
== END 2024-06-21 15:30 | disposition home or self-care (01) ==
LOC: NCHCN 15:29
PROVIDERS: PCP Nurse Practitioner Family; Visit Provider Nurse Practitioner Family
DX: Z00.00 Encounter for general adult medical examination without abnormal findings (principal)
CPT/HCPCS: 86803; 87389; 84439; 84443; 84481